=== PATIENT | female | born 1950 | race Caucasian/White ===

== ENCOUNTER → 2023-10-01 12:39 | Outpatient (REF) | payer OTHER, MEDICARE, SELFPAY ==
[2023-10-01 13:42] LABS: Free T4 1.23 ng/dl (0.78-2.19)
[2023-10-01 13:56] LABS: TSH 2.17 uIU/ml (0.47-4.68)
[2023-10-01 14:34] LABS: Glycohemoglobin (HgbA1c) 6.2 % (4.0-5.6)
== END ==
LOC: OLABN 12:39
PROVIDERS: ATTENDING PHYSICIAN Internal Medicine Geriatric Medicine
DX: R73.03 Prediabetes (principal); E03.9 Hypothyroidism, unspecified
CPT/HCPCS: 36415; 83036; 84439; 84443

== ENCOUNTER → 2024-03-31 13:28 | Outpatient (REF) | payer MEDICARE, OTHER, SELFPAY ==
[2024-03-31 16:05] LABS: ALT (SGPT) 21 U/L (0-35); AST (SGOT) 30 U/L (14-36); Albumin 3.7 g/dl (3.5-5.0); Alkaline Phosphatase 58 U/L (38-126); Blood Urea Nitrogen 22 mg/dl (7-17); Calcium 9.3 mg/dl (8.4-10.2); Carbon Dioxide 28 mmol/L (22-30); Chloride 103 mmol/L (98-107); Glucose 124 mg/dl (70-99); HDL Cholesterol 28 mg/dl; Iron 97 ug/dl (37-170); LDL Cholesterol, Calculated 104 mg/dl; Potassium 4.3 mmol/L (3.5-5.1); Sodium 138 mmol/L (135-145); Total Bilirubin 0.4 mg/dl (0.2-1.3); Total Cholesterol 177 mg/dl (50-199); Total Protein 6.4 g/dl (6.3-8.2); Triglyceride 226 mg/dl (10-149); Very Low Density Lipoprotein 45 mg/dl (0-30); eGFR > 60.00
[2024-03-31 16:22] LABS: Free T4 1.05 ng/dl (0.78-2.19); Vitamin D, 25-OH*** 42.1 ng/mL (30-80)
[2024-03-31 16:35] LABS: Hematocrit 41.6 % (37.0-47.0); Hemoglobin 13.7 g/dL (12.0-16.0); Mean Corp Hgb Conc. 32.9 g/dL (33.0-37.0); Mean Corpuscular Hgb 32.9 pg (27.0-31.0); Mean Corpuscular Volume 99.8 fL (81.0-99.0); Platelet Count 225 10^3/uL (130-400); Red Blood Cell Count 4.17 10^6/uL (4.20-5.40); Red Cell Dist. Width 14.5 % (11.5-14.5); TSH 9.69 uIU/ml (0.47-4.68); White Blood Cell Count 6.8 10^3/uL (4.8-10.8)
[2024-03-31 17:20] LABS: Depakane 91.6 ug/ml (50.0-120.0)
== END ==
LOC: OLABN 13:28
PROVIDERS: ATTENDING PHYSICIAN Internal Medicine Geriatric Medicine
DX: R11.10 Vomiting, unspecified (principal); E78.5 Hyperlipidemia, unspecified; I48.91 Unspecified atrial fibrillation; E03.9 Hypothyroidism, unspecified; E55.9 Vitamin D deficiency, unspecified
CPT/HCPCS: 36415; 80053; 80061; 80164; 82306; 83540; 84439; 84443; 85027

== ENCOUNTER → 2024-06-30 11:05 | Outpatient (REF) | payer MEDICARE, OTHER, SELFPAY ==
[2024-06-30 12:21] LABS: Blood Urea Nitrogen 27 mg/dl (7-17); Calcium 9.8 mg/dl (8.4-10.2); Carbon Dioxide 32 mmol/L (22-30); Chloride 101 mmol/L (98-107); Glucose 118 mg/dl (70-99); Potassium 4.1 mmol/L (3.5-5.1); Sodium 144 mmol/L (135-145); eGFR > 60.00
[2024-06-30 12:44] LABS: NT-proBNP 451 pg/ml
[2024-06-30 12:53] LABS: TSH 0.93 uIU/ml (0.47-4.68)
[2024-06-30 14:02] LABS: Glycohemoglobin (HgbA1c) 6.2 % (4.0-5.6)
== END ==
LOC: OLABN 11:05
PROVIDERS: ATTENDING PHYSICIAN Internal Medicine Geriatric Medicine
DX: I50.32 Chronic diastolic (congestive) heart failure (principal); E78.5 Hyperlipidemia, unspecified; E03.9 Hypothyroidism, unspecified; R73.03 Prediabetes
CPT/HCPCS: 36415; 80048; 83036; 83880; 84443

== ENCOUNTER 2024-08-21 01:27 | Inpatient (IN) | payer MEDICARE, OTHER, SELFPAY ==
[2024-08-20] MEDS: TYLENOL/FEVERALL 650 MG RECTAL (21:23)
[2024-08-20 21:27] VITALS: BP 143/71
[2024-08-20 21:31] VITALS: BP 143/71
[2024-08-20 21:41] LABS: % Basophils 0.7 % (0-2); % Immature Granulocytes 1.3 % (0-0.5); % Lymphocytes 24.1 % (20.5-51.1); % Monocytes 15.2 % (1.7-9.3); % Neutrophils 58.7 % (42.2-75.2); Absolute Immature Granulocytes 0.1 10^3/uL (0-0.05); Absolute Lymphocytes 1.5 10^3/uL (1.2-3.4); Absolute Monocytes 0.9 10^3/uL (0.1-0.6); Absolute Neutrophils 3.6 10^3/uL (1.4-6.5); Hematocrit 44.7 % (37.0-47.0); Hemoglobin 15.3 g/dL (12.0-16.0); Mean Corp Hgb Conc. 34.2 g/dL (33.0-37.0); Mean Corpuscular Hgb 33.3 pg (27.0-31.0); Mean Corpuscular Volume 97.2 fL (81.0-99.0); Mean Platelet Volume 10.9 fL (7.4-10.4); Nucleated Red Blood Cells % 0 %; Platelet Count 133 10^3/uL (130-400); Red Cell Dist. Width 14.6 % (11.5-14.5); White Blood Cell Count 6.1 10^3/uL (4.8-10.8)
[2024-08-20 21:46] LABS: Lactic Acid 1.9 mmol/L (0.7-2.0)
[2024-08-20 21:49] LABS: COVID-19 Antigen Negative (Negative)
[2024-08-20 21:54] LABS: Blood Urea Nitrogen 20 mg/dl (7-17); Carbon Dioxide 32 mmol/L (22-30); Chloride 99 mmol/L (98-107); Glucose 139 mg/dl (70-99); Sodium 140 mmol/L (135-145); eGFR > 60.00
[2024-08-20 23:00] VITALS: BP 132/70
[2024-08-21] VITALS (10 sets, daily range): BP systolic 106–145; BP diastolic 59–100
--- NOTE | 2024-08-21 00:21 | ED.GENMED ---
History of Present Illness
General
Chief Complaint: Fever
Source: other (Nursing staff in ER)
Exam Limitations: dementia (able to answer some questions)
Time Seen by Provider: 08/20/24 23:30
History of Present Illness
History of Present Illness:
This is a 74 year old female that comes in with c/o fever and cough. Told that the half-way did not treat the fever as the patient would not open her mouth. Told that she also has a cough and dehydration. Patient normall on Oxygen at 2 liters
by nasal canula. Denies any chest pain, SOB, abd pain, nausea, vomiting, diarrhea, headache, dizziness, urinary burning
Past History
Past History
ED Past Medical History: Arrthythmia (AFib), Cancer (Melanoma), GERD, HTN, Hypercholesterolemia, Seizures, Hypothyroidism, Psychiatric (depression), Other (Epilepsy, ekg monitor tech implant, Dementia, Paralysis, Parkinson's, TBI, Strabismus,
Anemia, ), Other (fractured pelvis without repair) and Other (Closed head injury 40 years ago with craniotomy, poor memory)
ED Past Surgical History: Brain (craniotomy in 1970), Cardiac (Loop recorder), Orthopedic (status post right ankle ORIF) and Other (Skull flap)
Social History
Tobacco: Non-smoker
Alcohol: None
Drug: None
Personal: Single
Living: half-way
Employment: Not employed
Family History
Family History: Other (Reviewed and Noncontributory); Negative Diabetes, Hypertension or CAD
Review of Systems
Review of Systems
All Other Systems: ROS reviewed and negative except as documented in HPI and ROS
Constitutional: Reports fever; Denies chills
EENT: Reports no symptoms
Respiratory: Reports cough
Cardiac: Reports no symptoms; Denies chest pain
ABD/GI: Reports no symptoms; Denies abdominal pain, nausea, vomiting or diarrhea
: Reports no symptoms
Musculoskeletal: Reports no symptoms
Skin: Reports no symptoms
Neurological: Reports no symptoms; Denies dizzy or headache
Psychiatric: Reports no symptoms
Phy Exam
General Physical Exam
General Presentation: no apparent distress
General age: appears stated age
General Skin: warm and dry
General Habitus: debilitated and elderly
General Mental: usual mental status
General Hydration: dry mucous membranes
ENT Exam
ENT Exam: TM's normal, pharynx normal and neck supple
Eye Exam
Eye Exam: other (Strabismus , Blind left eye)
Cardiovascular Exam
Cardiovascular Exam: no edema, normal peripheral pulses and irregularly irregular
Pulmonary Exam
Pulmonary Exam: no respiratory distress, chest non tender, no rhonchi, no wheezing, decreased breath sounds and other (Moist cough noted, Fine crackles at bases)
Gastrointestinal Exam
Gastrointestinal Exam: normal bowel sounds, non tender, soft, no organomegaly, no pulsatile mass and non distended
Musculoskeletal Exam
Musculoskeletal Exam: no edema
Skin Exam
Skin Exam: normal color, warm/dry, no rash and no petechia
Psychiatric Exam
Psychiatric Exam: normal mood/affect
Course
Orders/Labs/Results
Orders:
Orders
08/20/24 21:17
Acetaminophen [Tylenol/Feverall] 650 mg .ROUTE .STK-MED ONE
08/20/24 21:20
Electrocardiogram (*1) Urgent
Reason for Study: Other
Other Reason for Exam: Possible Sepsis
Cardiac Monitoring- Treatment ONCE
O2 Therapy [RESP] Urgent
Titrate/Wean O2 to maintain O2 sat greater than (%): 93
Special Instructions: TO MAINTAIN CONTINUOUS O2 SATS > OR = 93%
Pulse Ox/cont/shift [RESP] Urgent
Quantity: 1
Special Instructions: CONTINUOUS
08/20/24 21:21
EKG- Treatment ONCE
CR Chest - 2 Views Urgent
Comment:
Reason For Exam: suspected infection
08/20/24 21:22
Acetaminophen [Tylenol/Feverall] 650 mg RECTAL NOW STA
08/20/24 21:28
Basic Metabolic Panel Urgent
COVID-19 Antigen Urgent
Source: Nasal Swab
Complete Blood Count/With Diff Urgent
Lactic Acid Q4H
Comment: ON ICE, CANCEL 2ND ORDER IF FIRST LACTIC ACID LEVEL <2
Influenza A+B Rapid Molecular Urgent
YOSI Source: Nasal Swab
Specimen Description:
Abnormal Lab Results
08/20/24
21:28
MCH 33.3 H pg
(27.0-31.0)
RDW 14.6 H %
(11.5-14.5)
MPV 10.9 H fL
(7.4-10.4)
Abs Immat Gran (auto) 0.1 H 10^3/uL
(0-0.05)
Absolute Monos (auto) 0.9 H 10^3/uL
(0.1-0.6)
Immature Gran % 1.3 H %
(0-0.5)
Monocytes % 15.2 H %
(1.7-9.3)
Carbon Dioxide 32 H mmol/L
(22-30)
BUN 20 H mg/dl
(7-17)
Glucose 139 H mg/dl
(70-99)
08/20/24 21:28
08/20/24 21:28
Dehydration. Hyperglycemia. Lactic acid normal at 1.9, COVID and Influenza negative.
Vital Signs
Initial and Last Documented VS:
Initial Vital Signs
Temp
104.3 F H
08/20/24 21:24
Last Documented Vital Signs
Temp Pulse Resp BP Pulse Ox
101.6 F H 109 20 132/70 94
08/20/24 22:53 08/20/24 23:45 08/20/24 23:45 08/20/24 23:00 08/20/24 23:45
MDM/Problems Addressed
Differential Diagnosis Includes:
PNA, COVID, Influenza.
MDM/Problems Addressed:
This is a 74 year old female that is sent in form the half-way with a fever and cough. Patient normally wears Oxygen at 2 liters. Patient was not given anything for her fever as she would not open her mouth.
Will check labs. Chest x-ray. COVID and Influenza
Chest x-ray appears to have Pneumonia. Will start on antibiotics and given IV fluids. Hospitalist notified.
Chronic conditions affecting care:
Dementia, Chronic Oxygen use.
Acute Exacerbation and/or Progression of Chronic Illness:
NA
*Radiology
Radiology exam reviewed: preliminary read by ED provider (Chest- Lower lobe Pneumonia)
*Pulse Oximetry
Patient hypoxic: no
*EKG
Interpreted by ED Provider?: Yes
Heart Rate: 105
Rate: tachycardiac
Rhythm: a-fib
[place]: left axis deviation
QRS Pattern: normal QRS
Ischemia: no ischemia
*[employer] Interpretation
Rate: tachycardiac
Heart Rate: 104
Rhythm: a-fib
*Critical Care Note
Total Time (30-74mins, 75-104mins- exclusive of procedures): Not Applicable
ED Attending Note
-
Portions of this chart may have been created with voice recognition software.� Occasional wrong word or��sound alike� substitutions may have occurred due to the inherent limitations of voice recognition software.
Discharge Plan
Departure
Patient Disposition: Admit
Date of Disposition: 08/21/24
Time of Disposition: 00:40
Admit to: Med/Surg
Presentation/result/management discussed w/ accepting MD/DO: Hospitalist
Patient with high blood pressure during this ER visit?: Yes
Condition: Good
Covid-19: Negative COVID-19
Discharge Problem:
Lower lobe pneumonia, Fever
Prescriptions:
No Action
acetaminophen 325 MG tablet
650 mg PO Q4HPRN PRN (Reason: mild pain/ fever>100.4)
sennosides-docusate sodium 1 TABLET tablet
2 tab PO QPM
magnesium hydroxide 30 ML suspension
30 ml PO HSPRN PRN (Reason: lack of bm)
bisacodyl [OneLAX Bisacodyl] 10 MG suppository
10 mg [place] DAILYPRN PRN (Reason: if mom ineffective)
atorvastatin 10 MG tablet
10 mg PO QPM
diltiazem HCl 180 MG capsule,extended release 24hr
180 mg PO DAILY
ferrous sulfate [FeroSul] 325 MG tablet
325 mg PO MOWEFR
divalproex 125 MG capsule, delayed rel sprinkle
375 mg PO DAILY
pregabalin [Lyrica] 150 MG capsule
150 mg PO BID Qty: 20 0RF
divalproex [Depakote Sprinkles] 125 mg Capsule, Delayed Rel Sprinkle
750 mg PO HS
pantoprazole 40 mg Tablet,Delayed Release (Dr/Ec)
40 mg PO BID Qty: 0 0RF
ipratropium-albuterol 0.5 mg-3 mg(2.5 mg base)/3 mL Solution For Nebulization
3 ml INHALATION Q4H PRN (Reason: wheezing)
dextromethorphan-guaifenesin [Tussin DM] 10-100 mg/5 mL Syrup
10 ml PO Q4H PRN (Reason: cough)
levothyroxine 125 mcg Tablet
125 mcg PO DAILY
cholecalciferol (vitamin D3) 125 mcg (5,000 unit) Tablet
125 mcg PO DAILY
furosemide 40 mg Tablet
40 mg PO DAILY Qty: 0 0RF
sodium chloride [NebuSal] 3 % Solution For Nebulization
4 ml inhalation R TID Qty: 120 0RF
budesonide 0.5 mg/2 mL Suspension For Nebulization
0.5 mg inhalation R BID Qty: 0 0RF
Saline Nasal 0.65 % Aerosol,[place]
2 sprays intranasal TID Qty: 0 0RF
escitalopram oxalate 5 mg Tablet
5 mg PO DAILY Qty: 0 0RF
Eliquis 5 MG tablet
5 mg PO BID Qty: 0 0RF
Rx Instructions:
RESUME 09/26/23 IF NO FURTHER NOSE BLEED
Referrals:
UNKNOWN - PT NOT,INTERVIEWE [Family Provider] -
Interventions
Interventions:
*Risk Screen - Suicide Last Done: 08/20/24 21:31
*General Assessment Last Done: 08/20/24 21:31
*Neglect/Abuse Screening Last Done: 08/20/24 21:31
ED- Fall Risk Assessment Last Done: 08/20/24 23:53
*ED COVID-19 Vaccine History Last Done: 08/20/24 21:31
ED- Neurological Assessment Last Done: 08/20/24 21:48
ED-Skin Assessment Last Done: 08/20/24 21:48
Discharge Date and Time
Print Language: WOLOF
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
[2024-08-21] MEDS: NSS 500 IV (01:14)
[2024-08-21] MEDS: VANCOCIN 540 MG IV (01:14)
[2024-08-21 01:20] LABS: TSH Reflex To Free T4 0.09 uIU/ml (0.47-4.68)
[2024-08-21] MEDS: AZACTAM 1000 MG IV (03:53)
[2024-08-21 04:22] LABS: Urine Albumin 1+ (Neg - Trace); Urine Bilirubin Negative (Negative); Urine Character Very Cloudy (Clear); Urine Color Yellow; Urine Glucose Negative (Negative); Urine Ketone 1+ (Negative); Urine Leukocyte 2+ (Negative); Urine Nitrite Positive (Negative); Urine Occult Blood 3+ (Negative); Urine Specific Gravity 1.015 (<1.030); Urine Urobilinogen Negative (Neg - 1+)
[2024-08-21 04:56] LABS: Urine Amorphous Seen; Urine Bacteria Many (Negative); Urine Mucus Many; Urine Squamous Cell >30 /LPF (Few); Urine Urothelial Cell >30 /LPF (FEW); Urine White Cell >100 /HPF (0-5)
[2024-08-21 05:06] LABS: Free T4 1.78 ng/dl (0.78-2.19)
[2024-08-21 06:06] LABS: Hemoglobin 13.6 g/dL (12.0-16.0); Mean Corp Hgb Conc. 31.6 g/dL (33.0-37.0); Mean Corpuscular Hgb 32.2 pg (27.0-31.0); Mean Corpuscular Volume 101.9 fL (81.0-99.0); Mean Platelet Volume 10.6 fL (7.4-10.4); Platelet Count 128 10^3/uL (130-400); Red Blood Cell Count 4.22 10^6/uL (4.20-5.40); Red Cell Dist. Width 14.6 % (11.5-14.5); White Blood Cell Count 6.5 10^3/uL (4.8-10.8)
[2024-08-21 06:17] LABS: Blood Urea Nitrogen 19 mg/dl (7-17); Calcium 8.6 mg/dl (8.4-10.2); Carbon Dioxide 32 mmol/L (22-30); Chloride 103 mmol/L (98-107); Glucose 120 mg/dl (70-99); Potassium 3.9 mmol/L (3.5-5.1); Sodium 142 mmol/L (135-145); eGFR > 60.00
[2024-08-21 06:32] LABS: Procalcitonin < 0.05 ng/ml (0.0-0.25)
[2024-08-21] MEDS: TYLENOL 650 MG PO (06:46)
[2024-08-21 07:42] LABS: Glucose - Point of Care 119 mg/dl (70-99)
[2024-08-21] MEDS: NOVOLOG FLEXPEN-LOW RESISTANCE SC ×3 (09:16→17:12)
[2024-08-21] MEDS: DEPAKOTE (12 HR RELEASE) 375 MG PO (09:20)
[2024-08-21] MEDS: MUCINEX 600 MG PO ×2 (09:21→20:33)
[2024-08-21] MEDS: CARDIZEM CD 180 MG PO (09:22)
[2024-08-21] MEDS: PROTONIX 40 MG PO ×2 (09:22→20:33)
[2024-08-21] MEDS: LASIX 40 MG PO (09:22)
[2024-08-21] MEDS: VIBRAMYCIN 100 MG PO ×2 (09:23→20:34)
[2024-08-21] MEDS: PULMICORT 0.5 MG INH ×2 (09:33→19:30)
[2024-08-21] MEDS: DUONEB 3 ML INH (09:33)
--- NOTE | 2024-08-21 09:54 | W.PN.HOSP.TC ---
Today's Communication/Plan
-
Broad-spectrum antibiotics pending ID workup.
Continue supportive care.
Assessment / Plan
Assessment / Plan
Impression:
Concern for evolving sepsis (fever, tachycardia)
Pneumonia, aspiration versus nosocomial
Abnormal urinalysis
Other medical conditions:
TBI with prior history of tracheostomy, craniotomy 1971
Chronic hypoxic respiratory insufficiency on 2 L of nasal cannula oxygen at the baseline
Seizure disorder
Developmental delay
Anxiety/depression
Paroxysmal atrial fibrillation on anticoagulation
Hypothyroidism on replacement
Type 2 diabetes.
Osteoporosis with compression fracture
Hiatal hernia
Plan:
Presenting from nursing facility with fever.
On admission hemodynamically stable with normal oxygenation while on 2 L of nasal cannula oxygenation
Normal white count
Chest x-ray with bibasilar atelectasis and minimal pleural effusion
Abnormal urinalysis.
COVID-negative
Influenza negative
Differential diagnosis: With concern for evolving sepsis, could not rule out aspiration, versus UTI.
Initiated on broad-spectrum antibiotics: Ceftriaxone/doxycycline pending further workup
Follow blood cultures
Follow urine cultures
Speech and swallow consultation.
Chronic hypoxic respiratory insufficiency on 2 L of nasal cannula oxygen at the baseline.
See above
Maintain oxygen supplementation.
Continue Pulmicort
Continue nebulizers
Paroxysmal atrial fibrillation.
Continue diltiazem.
Continue apixaban
TBI
Seizure disorder continue preadmission regimen with Depakote
Chronic pain on Lyrica
Type 2 diabetes
Update hemoglobin A1c
Hold metformin acutely.
Continue basal bolus protocol.
Hypothyroidism on replacement
CODE STATUS DNR.
DVT prophylaxis apixaban
Anticipated Discharge: 24 - 48 hours
Subjective/Interval History
-
Date of Service: August 21, 2024
Objective Data
-
Labs:
Laboratory Results
08/20/24 08/21/24
21:28 05:47
WBC 6.5
Hgb 13.6
Hct 43.0
Plt Count 128 L
Sodium 140 142
Potassium 3.9
Chloride 99 103
Carbon Dioxide 32 H 32 H
BUN 20 H 19 H
Creatinine 0.7 0.7
Glucose 139 H 120 H
Calcium 9.0 8.6
Total Bilirubin Cancelled
AST Cancelled
ALT Cancelled
Alkaline Phosphatase Cancelled
Vital Signs:
Vital Signs
Temp Pulse Resp BP Pulse Ox
98.3 F 88 14 123/72 95
08/21/24 09:16 08/21/24 09:36 08/21/24 09:36 08/21/24 04:00 08/21/24 09:36
I&O
08/20/24 08/21/24 08/22/24
06:59 06:59 06:59
Intake Total 1040 / 1040
Output Total 200 / 200
Balance 840 / 840
Physical Exam
-
General: Well Developed and No Apparent Distress
HEENT: Normocephalic, Atraumatic and Moist Mucous Membranes
Respiratory: Clear to Auscultation
Cardiac: Regular Rhythm and S1/S2; Negative Murmur, Rub or Gallop
GI: Soft, Nontender, Nondistended and Normal Bowel Sounds; Negative Organomegaly
Rectal: Deferred by Provider
Musculoskeletal: No Clubbing, No Cyanosis and No Edema
Skin: Negative Rash
Neuro: Nonfocal/Grossly Intact
[2024-08-21] MEDS: FEOSOL 325 MG PO (10:26)
[2024-08-21] MEDS: LYRICA 150 MG PO ×2 (10:46→20:34)
[2024-08-21] MEDS: SYNTHROID 137 MCG PO (10:46)
[2024-08-21] MEDS: ROCEPHIN 1000 MG IV (10:53)
[2024-08-21] MEDS: STERILE WATER FOR INJECTION 10 ML IV (11:01)
[2024-08-21] MEDS: LIPITOR 10 MG PO (11:16)
[2024-08-21] MEDS: ELIQUIS 5 MG PO ×2 (11:16→20:33)
[2024-08-21 13:36] LABS: Glucose - Point of Care 120 mg/dl (70-99)
--- NOTE | 2024-08-21 13:39 | PTOTSP ---
Speech Therapy Evaluation:
Pt presents with clinical signs of oropharyngeal dysphagia, likely chronic in nature related to hx of Dementia, Parkinsons, and TBI. Pt received VSE in August of 2023, in which pt presented with mild-moderate oral phase dysphagia and functional
pharyngeal phase. It was recommended pt consume a regular/thin liquid diet and no further ST services were recommended at that time. On this date, pt presented with occasional s/sx of aspiration with thin liquids, however difficult to reliable
attribute to aspiration events given congested cough prior to PO intake. WBC WNL. Per nursing, pt passed 3 oz swallow screen.
Recommend:
1. Continue IDDSI Level 7 (regular) solids and thin liquids
2. Medications as tolerated
3. General aspiration and reflux precautions
4. Assistance/SPV with PO intake
5. CASHIER TICKET SELLING to follow re: tolerance of current diet level and to determine if VSE warranted.
--- NOTE | 2024-08-21 15:30 | PTCARENOTE ---
Received pt from ED holds. Pt drowsy but arousable to verbal stimuli. Pt oriented to person, confused. VSS 94% on 2L. Afib with PVCs on tele. Pt has no c/o pain at this time. Pt HOB elevated, call hinojosa within reach, bed alarm placed for safety, plan
of care continues.
[2024-08-21 16:56] LABS: Glucose - Point of Care 103 mg/dl (70-99)
[2024-08-21] MEDS: DEPAKOTE (12 HR RELEASE) 750 MG PO (17:42)
[2024-08-21] MEDS: SENOKOT-S 2 TABLET PO (20:33)
[2024-08-21 22:06] LABS: Glucose - Point of Care 118 mg/dl (70-99)
[2024-08-22 03:30] VITALS: BP 125/83
[2024-08-22] MEDS: SYNTHROID 137 MCG PO (04:45)
[2024-08-22 07:13] VITALS: BP 130/76
[2024-08-22] MEDS: DUONEB 3 ML INH (07:18)
[2024-08-22] MEDS: PULMICORT 0.5 MG INH (07:18)
[2024-08-22] MEDS: PROTONIX 40 MG PO ×2 (07:25→19:56)
[2024-08-22] MEDS: ELIQUIS 5 MG PO ×2 (07:25→19:56)
[2024-08-22] MEDS: MUCINEX 600 MG PO ×2 (07:25→19:57)
[2024-08-22] MEDS: CARDIZEM CD 180 MG PO (07:25)
[2024-08-22] MEDS: LIPITOR 10 MG PO (07:25)
[2024-08-22] MEDS: VIBRAMYCIN 100 MG PO (07:26)
[2024-08-22] MEDS: DEPAKOTE (12 HR RELEASE) 375 MG PO (07:26)
[2024-08-22] MEDS: LYRICA 150 MG PO ×2 (07:26→19:57)
[2024-08-22] MEDS: NOVOLOG FLEXPEN-LOW RESISTANCE SC ×3 (07:28→16:54)
[2024-08-22 07:29] LABS: Glucose - Point of Care 114 mg/dl (70-99)
[2024-08-22] MEDS: ROCEPHIN 1000 MG IV (11:06)
[2024-08-22] MEDS: STERILE WATER FOR INJECTION 10 ML IV (11:06)
[2024-08-22 11:32] VITALS: BP 128/73
[2024-08-22 12:26] LABS: Glucose - Point of Care 107 mg/dl (70-99)
[2024-08-22 15:03] VITALS: BP 129/77
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
--- NOTE | 2024-08-22 15:44 | W.PN.HOSP.TC ---
Today's Communication/Plan
-
Improved, been afebrile with improved mental status but
Urine culture with gram-negative bacilli pending final indication
Continue with ceftriaxone
Continue supportive care
Assessment / Plan
Assessment / Plan
Impression:
Sepsis present on admission (fever, tachycardia)
Urinary tract infection
Bibasilar infiltrates likely atelectasis
Other medical conditions:
TBI with prior history of tracheostomy, craniotomy 1971
Chronic hypoxic respiratory insufficiency on 2 L of nasal cannula oxygen at the baseline
Seizure disorder
Developmental delay
Anxiety/depression
Paroxysmal atrial fibrillation on anticoagulation
Hypothyroidism on replacement
Type 2 diabetes.
Osteoporosis with compression fracture
Hiatal hernia
Plan:
Sepsis secondary to UTI.
Presenting from nursing facility with fever.
On admission hemodynamically stable with normal oxygenation while on 2 L of nasal cannula oxygenation
Normal white count with left shift
Abnormal urinalysis
Urine culture preliminary with gram-negative bacilli
Chest x-ray with bibasilar atelectasis and minimal pleural effusion
Antibiotics consolidated to ceftriaxone pending final cultures
COVID-negative
Influenza negative
Speech evaluation with no evidence of aspiration.
Chronic hypoxic respiratory insufficiency on 2 L of nasal cannula oxygen at the baseline.
See above
Maintain oxygen supplementation.
Continue Pulmicort
Continue nebulizers
Paroxysmal atrial fibrillation.
Continue diltiazem.
Continue apixaban
TBI
Seizure disorder continue preadmission regimen with Depakote
Chronic pain on Lyrica
Type 2 diabetes
Update hemoglobin A1c 6.2
Hold metformin acutely.
Continue basal bolus protocol.
Hypothyroidism on replacement
CODE STATUS DNR.
DVT prophylaxis apixaban
Anticipated Discharge: 24 - 48 hours
Subjective/Interval History
-
Date of Service: August 22, 2024
Objective Data
-
Vital Signs:
Vital Signs
Temp Pulse Resp BP Pulse Ox
97.7 F 96 18 128/73 95
08/22/24 11:32 08/22/24 11:32 08/22/24 11:32 08/22/24 11:32 08/22/24 11:32
I&O
08/21/24 08/22/24 08/23/24
06:59 06:59 06:59
Intake Total 1040 / 1040
Output Total 200 / 200 175 / 175
Balance 840 / 840 -175 / -175
Physical Exam
-
General: Well Developed and No Apparent Distress
HEENT: Normocephalic, Atraumatic and Moist Mucous Membranes
Respiratory: Clear to Auscultation
Cardiac: Regular Rhythm and S1/S2; Negative Murmur, Rub or Gallop
GI: Soft, Nontender, Nondistended and Normal Bowel Sounds; Negative Organomegaly
Rectal: Deferred by Provider
Musculoskeletal: No Clubbing, No Cyanosis and No Edema
Skin: Negative Rash
Neuro: Nonfocal/Grossly Intact
[2024-08-22 16:30] LABS: Glucose - Point of Care 104 mg/dl (70-99)
[2024-08-22] MEDS: DEPAKOTE (12 HR RELEASE) 750 MG PO (17:00)
[2024-08-22] MEDS: PULMICORT INH (19:22)
[2024-08-22 19:23] VITALS: BP 144/77
[2024-08-22] MEDS: SENOKOT-S 2 TABLET PO (19:57)
[2024-08-22 21:13] LABS: Glucose - Point of Care 104 mg/dl (70-99)
[2024-08-22 23:48] VITALS: BP 136/98
[2024-08-23 03:52] VITALS: BP 110/64
[2024-08-23] MEDS: SYNTHROID 137 MCG PO (05:30)
[2024-08-23 07:30] VITALS: BP 145/72
[2024-08-23 07:32] LABS: Glucose - Point of Care 81 mg/dl (70-99)
[2024-08-23] MEDS: PULMICORT 0.5 MG INH ×2 (07:56→17:38)
[2024-08-23] MEDS: NOVOLOG FLEXPEN-LOW RESISTANCE SC ×3 (08:46→17:16)
[2024-08-23] MEDS: CARDIZEM CD 180 MG PO (08:55)
[2024-08-23] MEDS: LIPITOR 10 MG PO (08:55)
[2024-08-23] MEDS: LYRICA 150 MG PO ×2 (08:55→19:51)
[2024-08-23] MEDS: DEPAKOTE (12 HR RELEASE) 375 MG PO (08:55)
[2024-08-23] MEDS: ELIQUIS 5 MG PO ×2 (08:55→19:51)
[2024-08-23] MEDS: MUCINEX 600 MG PO ×2 (08:56→19:51)
[2024-08-23] MEDS: PROTONIX 40 MG PO ×2 (08:56→19:51)
[2024-08-23] MEDS: FEOSOL 325 MG PO (08:56)
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
[2024-08-23 11:25] VITALS: BP 135/76
[2024-08-23] MEDS: FLUSH (NSS) 2 FLUSH IV (11:26)
[2024-08-23] MEDS: STERILE WATER FOR INJECTION 10 ML IV (11:26)
[2024-08-23] MEDS: ROCEPHIN 1000 MG IV (11:26)
[2024-08-23 11:55] LABS: Glucose - Point of Care 101 mg/dl (70-99)
--- NOTE | 2024-08-23 14:23 | PTCARENOTE ---
Pt up to come off telemetry today per protocol. Pt having occasional 2 sec pauses with Afib. Last noted pause 2.19 sec at 1233. Pt asymptomatic. Discussed with Dr. Abdi. Dr. Abdi ok with pt coming off telemetry.
[2024-08-23 15:29] VITALS: BP 126/69
[2024-08-23 16:52] LABS: Glucose - Point of Care 107 mg/dl (70-99)
[2024-08-23] MEDS: DEPAKOTE (12 HR RELEASE) 750 MG PO (17:48)
[2024-08-23] MEDS: SENOKOT-S 2 TABLET PO (19:51)
[2024-08-23 21:06] LABS: Glucose - Point of Care 161 mg/dl (70-99)
[2024-08-23 23:55] VITALS: BP 116/73
[2024-08-24] MEDS: SYNTHROID 137 MCG PO (05:33)
[2024-08-24] MEDS: PULMICORT 0.5 MG INH (07:16)
[2024-08-24 07:40] VITALS: BP 156/91
[2024-08-24 08:13] LABS: Glucose - Point of Care 179 mg/dl (70-99)
[2024-08-24] MEDS: CARDIZEM CD 180 MG PO (08:45)
[2024-08-24] MEDS: MUCINEX 600 MG PO (08:45)
[2024-08-24] MEDS: DEPAKOTE (12 HR RELEASE) 375 MG PO (08:46)
[2024-08-24] MEDS: PROTONIX 40 MG PO (08:46)
[2024-08-24] MEDS: ELIQUIS 5 MG PO (08:46)
[2024-08-24] MEDS: LIPITOR 10 MG PO (08:46)
[2024-08-24] MEDS: LYRICA 150 MG PO (08:46)
[2024-08-24] MEDS: NOVOLOG FLEXPEN-LOW RESISTANCE 1 UNITS SC (08:51)
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
[2024-08-24] MEDS: FLUSH (NSS) 1 FLUSH IV (10:21)
[2024-08-24] MEDS: ROCEPHIN 1000 MG IV (10:21)
[2024-08-24] MEDS: STERILE WATER FOR INJECTION 10 ML IV (10:21)
--- NOTE | 2024-08-24 11:12 | CM ---
Patient seen at bedside. Patient for transfer back to [facility] and CM spoke with admissions at [facility] they confirmed ability to accept patient back. Please call report to [phone]/fax [phone]. CM called to patient sister and confirmed email,
[email or web address]. Patient can return to SNF. CM will complete ambulance forms and continue to follow for discharge planning needs.
Plan; return to SNF; [facility]
[2024-08-24 11:45] VITALS: BP 130/75
[2024-08-24 11:46] LABS: Glucose - Point of Care 135 mg/dl (70-99)
[2024-08-24] MEDS: NOVOLOG FLEXPEN-LOW RESISTANCE SC (11:52)
--- NOTE | 2024-08-24 12:01 | W.DCSUMMARY ---
Discharge Summary
Discharge Data
Date of Admission: 08/21/24
Date of Discharge: 08/24/24
-
Pending Results: No
Hospital Course
74 years old female [facility] for history of fever. Initial diagnosis urinary tract infection versus pneumonia. Chest radiography showed mild bibasilar infiltrate was mostly consistent with atelectasis. Patient has history
of chronic hypoxic respiratory failure on home oxygen. She did not have cough or worsening hypoxia in the hospital. Influenza screen and COVID extreme were negative. Patient received intravenous antibiotic. Urine culture was pansensitive
Escherichia coli. Patient started to improve with resolution of fever. She did not have leukocytosis. She had normal kidney function. Procalcitonin level was normal. She was able to tolerate diet. She was evaluated by speech therapy and
recommended to continue regular diet. Patient remained hemodynamically stable was [facility] back [facility] in a [facility] condition. Patient was discharged to finish course of oral antibiotic.
Discharge Plan
-
Patient Disposition: [facility]/SNF
Discharge Diagnosis/Procedures: Urinary tract infection, finish course of cefdinir for another 6 doses.
Diet: As tolerated
Referrals:
UNKNOWN - PT NOT,INTERVIEWE [Family Provider] -
Prescriptions:
New
cefdinir 300 mg capsule
300 mg PO BID Qty: 6 0RF
Continued
acetaminophen 325 MG tablet
650 mg PO Q4HPRN PRN (Reason: mild pain/ fever>100.4)
sennosides-docusate sodium 1 TABLET tablet
2 tab PO HS
magnesium hydroxide 30 ML suspension
30 ml PO HSPRN PRN (Reason: if no bm by 2nd day)
bisacodyl [OneLAX Bisacodyl] 10 MG suppository
10 mg SD DAILYPRN PRN (Reason: if mom ineffective)
ipratropium-albuterol 0.5 mg-3 mg(2.5 mg base)/3 mL Solution For Nebulization
3 ml INHALATION R Q4HPRN PRN (Reason: wheezing)
dextromethorphan-guaifenesin [Tussin DM] 10-100 mg/5 mL Syrup
10 ml PO Q4HPRN PRN (Reason: cough)
levothyroxine 125 mcg Tablet
137 mcg PO DAILY
metformin 500 mg Tablet
500 mg PO DAILY
furosemide [Lasix] 40 mg Tablet
40 mg PO DAILY
ketoconazole 2 % Shampoo
1 applic TOPICAL TUFR
atorvastatin [Lipitor] 10 mg Tablet
10 mg PO DAILY
diltiazem HCl 180 mg Capsule,Extended Release 24hr
180 mg PO DAILY
pantoprazole [Protonix] 40 mg Tablet,Delayed Release (Dr/Ec)
40 mg PO DAILY
ferrous sulfate 325 mg (65 mg iron) Tablet
325 mg PO MOWEFR@0800
budesonide 0.5 mg/2 mL Suspension For Nebulization
0.5 mg INHALATION R BID
divalproex [Depakote Sprinkles] 125 mg Capsule, Delayed Rel Sprinkle
750 mg PO HS
divalproex [Depakote Sprinkles] 125 mg Capsule, Delayed Rel Sprinkle
375 mg PO DAILY
pregabalin [Lyrica] 150 mg Capsule
150 mg PO BID
cholecalciferol (vitamin D3) [Vitamin D3] 125 mcg (5,000 unit) Tablet
125 mcg PO DAILY
Eliquis 5 mg Tablet
5 mg PO BID
Discharge Orders:
Discharge Patient (As Directed); Ordered 08/24/24
Ordered By: Dotty Abdi
Discharge Date and Time
Print Language: SLOVENIAN
[2024-08-24] MEDS: KEFLEX 500 MG PO (13:11)
== END 2024-08-24 14:06 | DRG 871 ==
LOC: 4 EAST ACU 01:27
PROVIDERS: Emergency Medicine; ADMITTING PHYSICIAN Internal Medicine; ATTENDING PHYSICIAN Internal Medicine; EMERGENCY PHYSICIAN Emergency Medicine
DX: A41.9 Sepsis, unspecified organism (principal); J18.9 Pneumonia, unspecified organism; N39.0 Urinary tract infection, site not specified; J98.11 Atelectasis; J96.11 Chronic respiratory failure with hypoxia; I50.32 Chronic diastolic (congestive) heart failure; F02.83 Dementia in other diseases classified elsewhere, unspecified severity, with mood disturbance; B96.20 Unspecified Escherichia coli [E. coli] as the cause of diseases classified elsewhere; Z79.890 Hormone replacement therapy; Z79.84 Long term (current) use of oral hypoglycemic drugs; Z79.01 Long term (current) use of anticoagulants; Z99.81 Dependence on supplemental oxygen; Z11.52 Encounter for screening for COVID-19; G40.909 Epilepsy, unspecified, not intractable, without status epilepticus; I48.91 Unspecified atrial fibrillation; K21.9 Gastro-esophageal reflux disease without esophagitis; E03.9 Hypothyroidism, unspecified; D50.9 Iron deficiency anemia, unspecified; I11.0 Hypertensive heart disease with heart failure; E86.0 Dehydration; F32.A Depression, unspecified; G20.A1 Parkinson's disease without dyskinesia, without mention of fluctuations; H50.9 Unspecified strabismus; Z87.820 Personal history of traumatic brain injury; E78.00 Pure hypercholesterolemia, unspecified; Z85.820 Personal history of malignant melanoma of skin; Z88.1 Allergy status to other antibiotic agents; Z88.0 Allergy status to penicillin; Z88.8 Allergy status to other drugs, medicaments and biological substances; E11.9 Type 2 diabetes mellitus without complications; Z66 Do not resuscitate; M80.00XG Age-related osteoporosis with current pathological fracture, unspecified site, subsequent encounter for fracture with delayed healing; K44.9 Diaphragmatic hernia without obstruction or gangrene; D64.9 Anemia, unspecified; G83.9 Paralytic syndrome, unspecified; H54.62 Unqualified visual loss, left eye, normal vision right eye
CPT/HCPCS: 71046; 80048; 81003; 81015; 82962; 83605; 84145; 84439; 84443; 85025; 85027; 87070; 87077; 87086; 87186; 87502; 87811; 92526; 92610; 93005; 94640; 99285

== ENCOUNTER 2024-08-28 14:06 | Inpatient (IN) | payer MEDICARE, OTHER, SELFPAY ==
[2024-08-28] VITALS (12 sets, daily range): BP systolic 120–146; BP diastolic 64–89; BMI 26.2; BMI 24.8
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
[2024-08-28] MEDS: TYLENOL/FEVERALL 650 MG RECTAL (10:45)
[2024-08-28 11:02] LABS: % Basophils 0.6 % (0-2); % Eosinophils 0.1 % (0-6); % Lymphocytes 19.2 % (20.5-51.1); % Monocytes 11.3 % (1.7-9.3); % Neutrophils 65.8 % (42.2-75.2); Absolute Basophils 0.1 10^3/uL (0-0.2); Absolute Immature Granulocytes 0.3 10^3/uL (0-0.05); Absolute Monocytes 1.2 10^3/uL (0.1-0.6); Absolute Neutrophils 6.9 10^3/uL (1.4-6.5); Hematocrit 46.2 % (37.0-47.0); Hemoglobin 15.4 g/dL (12.0-16.0); Mean Corp Hgb Conc. 33.3 g/dL (33.0-37.0); Mean Corpuscular Hgb 33.3 pg (27.0-31.0); Mean Corpuscular Volume 99.8 fL (81.0-99.0); Mean Platelet Volume 10.5 fL (7.4-10.4); Nucleated Red Blood Cells % 0 %; Platelet Count 243 10^3/uL (130-400); Red Blood Cell Count 4.63 10^6/uL (4.20-5.40); Red Cell Dist. Width 14.7 % (11.5-14.5); White Blood Cell Count 10.5 10^3/uL (4.8-10.8)
[2024-08-28 11:09] LABS: Lactic Acid 1.6 mmol/L (0.7-2.0)
[2024-08-28 11:10] LABS: ALT (SGPT) 31 U/L (0-35); AST (SGOT) 42 U/L (14-36); Albumin 4.4 g/dl (3.5-5.0); Alkaline Phosphatase 55 U/L (38-126); Blood Urea Nitrogen 24 mg/dl (7-17); Calcium 9.6 mg/dl (8.4-10.2); Carbon Dioxide 38 mmol/L (22-30); Chloride 97 mmol/L (98-107); Estimated Creatinine Clearance 49 ml/min; Glucose 172 mg/dl (70-99); Potassium 3.6 mmol/L (3.5-5.1); Sodium 145 mmol/L (135-145); Total Bilirubin 0.5 mg/dl (0.2-1.3); Total Protein 7.5 g/dl (6.3-8.2); eGFR > 60.00
[2024-08-28 11:20] LABS: Troponin I < 0.012 ng/ml
[2024-08-28 11:30] LABS: COVID-19 Antigen Negative (Negative)
[2024-08-28 11:49] LABS: Urine Albumin Trace (Neg - Trace); Urine Bilirubin Negative (Negative); Urine Character Clear (Clear); Urine Glucose Negative (Negative); Urine Ketone Trace (Negative); Urine Leukocyte Trace (Negative); Urine Nitrite Negative (Negative); Urine Occult Blood 2+ (Negative); Urine Specific Gravity 1.015 (<1.030); Urine Urobilinogen Negative (Neg - 1+); Urine pH 6.5 (5.0-9.0)
[2024-08-28 11:57] LABS: Urine Color Yellow
[2024-08-28 12:13] LABS: Urine Bacteria Few (Negative); Urine White Cell 0-2 /HPF (0-5)
[2024-08-28] MEDS: ZOSYN 100 IV (12:39)
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
--- NOTE | 2024-08-28 13:07 | W.PN.UPDATE ---
Update Note
Progress Note Update
This is an addendum to the H&P written by Kristel Conley on 08/28/2024. Patient seen and examined independently with COLD ROLL CATCHER.
74-year-old female past medical history of seizure disorder, TBI with prior tracheostomy/craniotomy, developmental delay, anxiety/depression, chronic hypoxemic respiratory insufficiency on 2 L, paroxysmal atrial fibrillation, HFpEF, hypothyroidism,
type 2 diabetes, osteoporosis, hiatal hernia, presenting for unresponsiveness witf of 88% 3 L with improvement with nonrebreather. Febrile with temperature of 102.
Patient was recently admitted from 08/21 to 08/24 for fever secondary to UTI/pneumonia.
Patient clinically septic with fever, tachycardia, tachypnea. Chest x-ray shows bibasilar opacification using subsegmental atelectasis/small left pleural effusion. Pneumonia in the left lower lobe cannot be excluded.
COVID and influenza negative.
Presentation consistent with sepsis secondary to acute viral bronchitis/pneumonia.
Check blood cultures. IV fluids for sepsis although cautious given heart failure history. Zosyn given recent hospitalization.
[2024-08-28] MEDS: NSS 500 IV (13:17)
--- NOTE | 2024-08-28 18:38 | PTCARENOTE ---
1829: Patient arrived to IMU via stretcher. Patient slid from stetcher to bed with assist x3. Patient oriented to self. Confused to time and place. Bed alarm on and audible. NRB at 15L with SpO2 96%. Call hinojosa within reach, bed in lowest position,
and bed wheels locked.
[2024-08-28] MEDS: NSS 1000 IV (19:30)
[2024-08-28] MEDS: ZOSYN 50 IV (19:31)
[2024-08-28] MEDS: ELIQUIS 5 MG PO (19:38)
[2024-08-28] MEDS: LIPITOR 10 MG PO (19:38)
[2024-08-28] MEDS: PROTONIX 40 MG PO (19:38)
[2024-08-28 19:59] LABS: Glucose - Point of Care 133 mg/dl (70-99)
[2024-08-28] MEDS: PULMICORT 0.5 MG INH (20:08)
[2024-08-28] MEDS: SENOKOT-S 2 TABLET PO (21:00)
[2024-08-28] MEDS: LYRICA 150 MG PO (21:00)
[2024-08-28] MEDS: DEPAKOTE SPRINKLE 750 MG PO (21:00)
[2024-08-28 22:02] LABS: Glucose - Point of Care 127 mg/dl (70-99)
--- NOTE | 2024-08-28 22:21 | PTCARENOTE ---
Rec'd pt from previous RN. Admission performed with assistance of medical record, pt answered questions to the best of her ability. Drowsy, but arousable to voice, oriented to self at this time. Pt able to take oral medications whole with water, but
did require minimal prompting. Pt unable to turn self independently, turn schedule in place to prevent skin breakdown. Pt received on NRB, this RN and covering RT transitioned pt to 5L NC. Pt tolerating at 99%. Pt denies complaints at this time.
[2024-08-29] VITALS (12 sets, daily range): BP systolic 98–129; BP diastolic 62–76; BMI 25.4
[2024-08-29] MEDS: ZOSYN 50 IV ×4 (01:26→21:30)
[2024-08-29 05:55] LABS: Blood Urea Nitrogen 25 mg/dl (7-17); Carbon Dioxide 35 mmol/L (22-30); Chloride 101 mmol/L (98-107); Estimated Creatinine Clearance 57 ml/min; Glucose 125 mg/dl (70-99); Potassium 3.6 mmol/L (3.5-5.1); Sodium 145 mmol/L (135-145); eGFR > 60.00
[2024-08-29 06:42] LABS: Hematocrit 43.1 % (37.0-47.0); Hemoglobin 13.8 g/dL (12.0-16.0); Mean Corpuscular Hgb 32.9 pg (27.0-31.0); Mean Corpuscular Volume 102.9 fL (81.0-99.0); Mean Platelet Volume 10.7 fL (7.4-10.4); Platelet Count 194 10^3/uL (130-400); Red Blood Cell Count 4.19 10^6/uL (4.20-5.40); Red Cell Dist. Width 14.6 % (11.5-14.5)
[2024-08-29] MEDS: PROTONIX 40 MG PO ×2 (08:20→21:30)
[2024-08-29] MEDS: LYRICA 150 MG PO ×2 (08:20→21:30)
[2024-08-29] MEDS: CARDIZEM CD PO (08:20)
[2024-08-29] MEDS: DEPAKOTE SPRINKLE 375 MG PO (08:21)
[2024-08-29] MEDS: VITAMIN D3 (cholecalciferol) 125 MCG PO (08:21)
[2024-08-29] MEDS: ELIQUIS 5 MG PO ×2 (08:21→21:30)
[2024-08-29 08:36] LABS: Glycohemoglobin (HgbA1c) 6.2 % (4.0-5.6)
[2024-08-29 08:38] LABS: Glucose - Point of Care 113 mg/dl (70-99)
[2024-08-29] MEDS: PULMICORT 0.5 MG INH ×2 (08:48→20:21)
--- NOTE | 2024-08-29 09:05 | PTCARENOTE ---
Patient recevied from shift manager. Patient resting comfortably in bed. AAOx1, mostly to self and is drowsy. VSS. No events noted overnight. No complaints of pain at this time. Currently on 3L N/C, will attempt to wean to baseline of 2L as
tolerated. Continuing ABX and IVF. Purewick in place. No tests scheduled at this moment. Call hinojosa in reach.
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
--- NOTE | 2024-08-29 10:42 | CM ---
CM following re: discharge planning.
Reviewed pt's chart, met with pt and spoke to pt's sister Addis over the phone.
Pt is a 74 year old female, admitted with primary dx of Sepsis/acute hypoxic respiratory failure likely from pneumonia.
Pt's sister Addis stated she has POA, pt has been a long-term care resident at [facility] since 2019, had brain injury at the age of 21. Pt's sister Addis stated she is the only family member. Per sister pt is wheelchair bound and [facility] staff provides
all necessary care. Per sister, pt will return back to [facility] for a LTC when medically stable.
PCP: Gerber Sawyer
Pharmacy: Contract pharmacy
D/C plan: return back to [facility] when medically stable.
CM will follow with discharge plan updates as hospitalization progresses
[2024-08-29 12:27] LABS: Glucose - Point of Care 103 mg/dl (70-99)
[2024-08-29] MEDS: NSS 1000 IV (12:38)
--- NOTE | 2024-08-29 13:29 | PTOTSP ---
Speech Therapy Evaluation:
Pt presents with clinical signs of oropharyngeal dysphagia, likely chronic in nature related to hx of Dementia, Parkinson's, and TBI. Pt received VSE in August of 2023, in which pt presented with mild-moderate oral phase dysphagia and functional
pharyngeal phase. On this date, pt demonstrated impaired oral phase as demonstrated by prolonged mastication/bolus formation, slow and segmented transfers of solids, and pocketing in buccal cavities L>R. No overt s/sx of aspiration observed across
PO intake. Attempted 3oz swallow screen, in which pt did not successfully complete d/t slow rate of intake with intermittent breaks between sips, however no s/sx of aspiration after consuming all 3 ounces.
Recommend:
1. Diet downgrade to IDDSI Level 5 (minced and moist solids) and thin liquids
2. Medications as tolerated (whole in water per RN report)
3. FULL supervision, PARTIAL assistance with PO intake
4. Ensure oral clearance prior to next bite
5. DRIER TAKE OFF TENDER to follow re: tolerance of current diet level, to determine if pt candidate for diet upgrades, and to determine if VSE warranted.
[2024-08-29] MEDS: LASIX 40 MG PO (16:20)
[2024-08-29 17:39] LABS: Glucose - Point of Care 88 mg/dl (70-99)
[2024-08-29] MEDS: LIPITOR 10 MG PO (18:16)
[2024-08-29] MEDS: DEPAKOTE SPRINKLE 750 MG PO (21:32)
[2024-08-29] MEDS: SENOKOT-S 2 TABLET PO (21:32)
[2024-08-29 21:49] LABS: Glucose - Point of Care 108 mg/dl (70-99)
[2024-08-30] VITALS (10 sets, daily range): BP systolic 91–127; BP diastolic 52–99; BMI 25.6
--- NOTE | 2024-08-30 02:45 | PTCARENOTE ---
Pt currently on 3L NC SPO2 97-98%. Pt continued in Afib, HR 60's. Oral care completed numerous times through out night. Pt had no complaints over night. Call hinojosa within reach. Assessment care and vitals as charted.
[2024-08-30] MEDS: ZOSYN 50 IV ×4 (03:00→22:00)
[2024-08-30 05:45] LABS: % Basophils 0.6 % (0-2); % Eosinophils 2.6 % (0-6); % Immature Granulocytes 1.5 % (0-0.5); % Lymphocytes 33.3 % (20.5-51.1); % Monocytes 10.2 % (1.7-9.3); % Neutrophils 51.8 % (42.2-75.2); Absolute Basophils 0.1 10^3/uL (0-0.2); Absolute Eosinophils 0.2 10^3/uL (0-0.7); Absolute Immature Granulocytes 0.1 10^3/uL (0-0.05); Absolute Monocytes 0.9 10^3/uL (0.1-0.6); Absolute Neutrophils 4.7 10^3/uL (1.4-6.5); Hematocrit 43.3 % (37.0-47.0); Hemoglobin 14.2 g/dL (12.0-16.0); Mean Corp Hgb Conc. 32.8 g/dL (33.0-37.0); Mean Corpuscular Hgb 32.8 pg (27.0-31.0); Mean Platelet Volume 10.7 fL (7.4-10.4); Nucleated Red Blood Cells % 0 %; Platelet Count 206 10^3/uL (130-400); Red Blood Cell Count 4.33 10^6/uL (4.20-5.40); Red Cell Dist. Width 13.8 % (11.5-14.5); White Blood Cell Count 9.1 10^3/uL (4.8-10.8)
[2024-08-30 05:58] LABS: Blood Urea Nitrogen 21 mg/dl (7-17); Carbon Dioxide 36 mmol/L (22-30); Chloride 97 mmol/L (98-107); Estimated Creatinine Clearance 76 ml/min; Glucose 89 mg/dl (70-99); Potassium 3.7 mmol/L (3.5-5.1); Sodium 144 mmol/L (135-145); eGFR > 60.00
[2024-08-30] MEDS: PULMICORT 0.5 MG INH ×2 (07:39→19:43)
[2024-08-30 08:46] LABS: Glucose - Point of Care 95 mg/dl (70-99)
[2024-08-30] MEDS: CARDIZEM CD 180 MG PO (08:53)
[2024-08-30] MEDS: DEPAKOTE SPRINKLE 375 MG PO (08:53)
[2024-08-30] MEDS: PROTONIX 40 MG PO ×2 (08:54→22:00)
[2024-08-30] MEDS: LYRICA 150 MG PO ×2 (08:54→21:59)
[2024-08-30] MEDS: FEOSOL 325 MG PO (08:54)
[2024-08-30] MEDS: VITAMIN D3 (cholecalciferol) 125 MCG PO (08:54)
[2024-08-30] MEDS: ELIQUIS 5 MG PO ×2 (08:54→22:00)
[2024-08-30] MEDS: LASIX 40 MG PO (08:54)
--- NOTE | 2024-08-30 09:21 | PTCARENOTE ---
Patient recevied from shift lab technician. Patient resting comfortably in bed. AAOx1-2, mostly to self and place. VSS. No events noted overnight. No complaints of pain at this time. Remained on 3L N/C overnight and will attempt to wean to baseline of
2L as tolerated. Continuing ABX and IVF. Purewick in place. No tests scheduled at this moment. Call hinojosa in reach.
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
[2024-08-30 14:07] LABS: Glucose - Point of Care 95 mg/dl (70-99)
--- NOTE | 2024-08-30 16:45 | PTCARENOTE ---
Report called to Pearl Cevallos RN. Patient transported via new room bed with all known belongings. Receiving RN in room to greet patient.
[2024-08-30 17:24] LABS: Glucose - Point of Care 88 mg/dl (70-99)
[2024-08-30] MEDS: LIPITOR 10 MG PO (18:41)
[2024-08-30] MEDS: SENOKOT-S 2 TABLET PO (22:00)
[2024-08-30] MEDS: DEPAKOTE SPRINKLE 750 MG PO (22:01)
[2024-08-30 22:44] LABS: Glucose - Point of Care 88 mg/dl (70-99)
[2024-08-31] VITALS (7 sets, daily range): BP systolic 103–135; BP diastolic 55–74; BMI 25.6
[2024-08-31] MEDS: ZOSYN 50 IV ×4 (04:21→20:34)
[2024-08-31 06:43] LABS: Glucose - Point of Care 90 mg/dl (70-99)
[2024-08-31] MEDS: PULMICORT 0.5 MG INH ×2 (07:31→19:36)
--- NOTE | 2024-08-31 07:35 | W.PN.HOSP.TC ---
Today's Communication/Plan
-
Continue IV antibiotics.
Assessment / Plan
Assessment / Plan
Physical exam:
General: Acutely ill
HEENT: Normocephalic, Atraumatic and Moist Mucous Membranes
Respiratory: Some rhonchi in the bases; Negative Wheezes, Rales
Cardiac: Regular Rhythm and S1/S2
GI: Soft, Nontender and Nondistended
Musculoskeletal: No Clubbing, No Cyanosis and No Edema
Neuro: Awake, Alert and Oriented
Psych: Calm
A/P:
Sepsis due to aspiration pneumonia:
Improving
On IV Zosyn
Appreciate speech therapy eval--> recommended minced and moist diet
At risk of recurrent events from aspiration
Blood cultures no growth
Recently hospitalized for UTI
PT eval
Updated sister prior
Hypokalemia:
Replete and trend
Acute hypoxic respiratory failure due to pneumonia:
Initially on nonrebreather mask but now on supplemental oxygen
Titrate oxygen
Flu and COVID-19 negative
Strep and Legionella negative
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
Continue monitor mental status and behavior
Chronic diastolic CHF:
Continue oral furosemide 40 mg p.o. daily
Paroxysmal atrial fibrillation:
Continue diltiazem 180 mg p.o. daily
Continue apixaban 5 mg p.o. twice a day
Seizure disorder:
Continue Depakote 375 mg p.o. daily and 750 mg p.o. in the evening
Hyperlipidemia:
Continue statin
DVT prophylaxis:
Eliquis
CODE STATUS:
DNR
Anticipated Discharge: Within 24 hours
Subjective/Interval History
-
Date of Service: August 31, 2024
Feels better overall. On oxygen supplementation. Afebrile
Objective Data
-
Labs:
Laboratory Results
08/31/24
06:00
WBC Pending
Hgb Pending
Hct Pending
Plt Count Pending
Sodium Pending
Potassium Pending
Chloride Pending
Carbon Dioxide Pending
BUN Pending
Creatinine Pending
Glucose Pending
Calcium Pending
Vital Signs:
Vital Signs
Temp Pulse Resp BP Pulse Ox
97.4 F 74 16 103/62 94
08/31/24 03:00 08/31/24 03:00 08/31/24 03:00 08/31/24 03:00 08/31/24 03:00
I&O
08/30/24 08/31/24 09/01/24
06:59 06:59 06:59
Intake Total 700 / 700 220 / 220
Output Total 800 / 800 600 / 600
Balance -100 / -100 -380 / -380
[2024-08-31 08:44] LABS: % Basophils 0.7 % (0-2); % Eosinophils 2.5 % (0-6); % Immature Granulocytes 1.1 % (0-0.5); % Lymphocytes 39.1 % (20.5-51.1); % Monocytes 13.4 % (1.7-9.3); % Neutrophils 43.2 % (42.2-75.2); Absolute Basophils 0.1 10^3/uL (0-0.2); Absolute Eosinophils 0.2 10^3/uL (0-0.7); Absolute Immature Granulocytes 0.1 10^3/uL (0-0.05); Absolute Lymphocytes 2.8 10^3/uL (1.2-3.4); Absolute Neutrophils 3.1 10^3/uL (1.4-6.5); Hematocrit 39.4 % (37.0-47.0); Hemoglobin 13.8 g/dL (12.0-16.0); Mean Corpuscular Hgb 33.5 pg (27.0-31.0); Mean Corpuscular Volume 95.6 fL (81.0-99.0); Mean Platelet Volume 10.8 fL (7.4-10.4); Nucleated Red Blood Cells % 0 %; Platelet Count 190 10^3/uL (130-400); Red Blood Cell Count 4.12 10^6/uL (4.20-5.40); Red Cell Dist. Width 13.5 % (11.5-14.5); White Blood Cell Count 7.2 10^3/uL (4.8-10.8)
[2024-08-31 08:53] LABS: Blood Urea Nitrogen 16 mg/dl (7-17); Calcium 9.1 mg/dl (8.4-10.2); Carbon Dioxide 34 mmol/L (22-30); Chloride 95 mmol/L (98-107); Estimated Creatinine Clearance 76 ml/min; Glucose 86 mg/dl (70-99); Sodium 140 mmol/L (135-145); eGFR > 60.00
[2024-08-31] MEDS: DEPAKOTE SPRINKLE 375 MG PO (10:38)
[2024-08-31] MEDS: CARDIZEM CD 180 MG PO (10:38)
[2024-08-31] MEDS: ELIQUIS 5 MG PO ×2 (10:38→20:38)
[2024-08-31] MEDS: LASIX 40 MG PO (10:38)
[2024-08-31] MEDS: LYRICA 150 MG PO ×2 (10:38→20:38)
[2024-08-31] MEDS: DESENEX/MITRAZOL/ZEASORB 1 APPLIC TOPICAL ×2 (10:39→20:47)
[2024-08-31] MEDS: PROTONIX 40 MG PO ×2 (10:39→20:38)
[2024-08-31] MEDS: VITAMIN D3 (cholecalciferol) 125 MCG PO (10:39)
[2024-08-31] MEDS: FLUSH (NSS) 1 FLUSH IV (10:39)
--- NOTE | 2024-08-31 11:43 | CM ---
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
[facility]
Report [phone]
[2024-08-31 12:01] LABS: Glucose - Point of Care 118 mg/dl (70-99)
[2024-08-31] MEDS: KCL 40 MEQ PO ×2 (13:51→18:31)
[2024-08-31 16:25] LABS: Glucose - Point of Care 126 mg/dl (70-99)
[2024-08-31] MEDS: LIPITOR 10 MG PO (18:31)
[2024-08-31 21:40] LABS: Glucose - Point of Care 119 mg/dl (70-99)
[2024-08-31] MEDS: DEPAKOTE SPRINKLE 750 MG PO (22:06)
[2024-08-31] MEDS: SENOKOT-S PO (22:07)
[2024-09-01] MEDS: ZOSYN 50 IV ×4 (03:06→20:08)
[2024-09-01 03:34] VITALS: BP 131/72
[2024-09-01 06:00] VITALS: BMI 25.8
[2024-09-01] MEDS: PULMICORT 0.5 MG INH ×2 (07:06→20:11)
[2024-09-01 07:22] LABS: Glucose - Point of Care 104 mg/dl (70-99)
[2024-09-01 07:25] VITALS: BP 141/78
[2024-09-01] MEDS: PROTONIX 40 MG PO (09:13)
[2024-09-01] MEDS: CARDIZEM CD 180 MG PO (09:14)
[2024-09-01] MEDS: LASIX 40 MG PO (09:14)
[2024-09-01] MEDS: DEPAKOTE SPRINKLE 375 MG PO (09:14)
[2024-09-01] MEDS: ELIQUIS 5 MG PO (09:14)
[2024-09-01] MEDS: VITAMIN D3 (cholecalciferol) 125 MCG PO (09:14)
[2024-09-01] MEDS: LYRICA 150 MG PO (09:15)
[2024-09-01] MEDS: FEOSOL 325 MG PO (09:15)
[2024-09-01] MEDS: DESENEX/MITRAZOL/ZEASORB 1 APPLIC TOPICAL ×2 (09:17→20:09)
--- NOTE | 2024-09-01 10:18 | W.PN.HOSP.TC ---
Today's Communication/Plan
-
Continue IV antibiotics. NPO. IV fluid
Assessment / Plan
Assessment / Plan
Physical exam:
General: Acutely ill
HEENT: Normocephalic, Atraumatic and Moist Mucous Membranes
Respiratory: Some rhonchi in the bases; Negative Wheezes, Rales
Cardiac: Regular Rhythm and S1/S2
GI: Soft, Nontender and Nondistended
Musculoskeletal: No Clubbing, No Cyanosis and No Edema
Neuro: Awake, Alert and Oriented
Psych: Calm
A/P:
Sepsis due to aspiration pneumonia:
I was about to discharge her today and change everything to oral but patient today her swallowing has stepped back. Start IV fluids and restart IV antibiotics as below.
On IV Zosyn
Appreciate speech therapy eval--> recommended n.p.o. for now
At risk of recurrent events from aspiration
Blood cultures no growth
Recently hospitalized for UTI
PT eval
Updated sister prior
Hypokalemia:
Replete and trend
Acute hypoxic respiratory failure due to pneumonia:
Initially on nonrebreather mask but now on supplemental oxygen
Titrate oxygen
Flu and COVID-19 negative
Strep and Legionella negative
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
Continue monitor mental status and behavior
Chronic diastolic CHF:
Continue oral furosemide 40 mg p.o. daily
Paroxysmal atrial fibrillation:
Continue diltiazem 180 mg p.o. daily
Continue apixaban 5 mg p.o. twice a day
Seizure disorder:
Continue Depakote 375 mg p.o. daily and 750 mg p.o. in the evening
Hyperlipidemia:
Continue statin
DVT prophylaxis:
Eliquis
CODE STATUS:
DNR
Time spent 55 minutes
Anticipated Discharge: 24 - 48 hours
Subjective/Interval History
-
Date of Service: September 01, 2024
Patient not eating and not swallowing today. Afebrile.
Objective Data
-
Labs:
Laboratory Results
09/01/24
09:07
Sodium Pending
Potassium Pending
Chloride Pending
Carbon Dioxide Pending
BUN Pending
Creatinine Pending
Glucose Pending
Calcium Pending
Vital Signs:
Vital Signs
Temp Pulse Resp BP Pulse Ox
98 F 71 20 141/78 97
09/01/24 07:25 09/01/24 09:14 09/01/24 07:25 09/01/24 09:14 09/01/24 09:08
I&O
08/31/24 09/01/24 09/02/24
06:59 06:59 06:59
Intake Total 220 / 220 220 / 220 120 / 120
Output Total 600 / 600
Balance -380 / -380 220 / 220 120 / 120
[2024-09-01 11:26] LABS: Blood Urea Nitrogen 16 mg/dl (7-17); Calcium 9.4 mg/dl (8.4-10.2); Carbon Dioxide 32 mmol/L (22-30); Chloride 96 mmol/L (98-107); Estimated Creatinine Clearance 65 ml/min; Glucose 105 mg/dl (70-99); Potassium 3.3 mmol/L (3.5-5.1); Sodium 140 mmol/L (135-145); eGFR > 60.00
[2024-09-01 11:38] VITALS: BP 147/83
[2024-09-01 11:41] LABS: Glucose - Point of Care 112 mg/dl (70-99)
[2024-09-01 12:14] LABS: Glucose - Point of Care 99 mg/dl (70-99)
--- NOTE | 2024-09-01 12:26 | CM ---
Addendum entered by SHAHANA Lemons 09/01/24 13:08:
Spouse and José Luis in admissions at [facility] updated.
Addendum entered by SHAHANA Lemons 09/01/24 13:04:
Attending stated that patient is not medically cleared for discharge. Will update spouse.
Addendum entered by SHAHANA Lemons 09/01/24 12:44:
Spoke with attending who confirmed that patient is cleared for d/c today. Placed a call to patient's sister. Reviewed IMM verbally and she is agreeable to d/c. Signed IMM is now on chart.
Medical necessity and transfer sheet completed for [facility] community relations rep.
Original Note:
Per attending note from yesterday, patient may be medically cleared for d/c today. Placed a call to [facility] Debbie and left voice mail for José Luis in admissions. Requested return call to confirm bed availability. Patient does not need auth for
transfer. Will complete medical necessity/transfer sheet in anticipation that patient will transfer back today.
Plan: Case management will continue to follow and assist with discharge planning. Back to [facility] upon medical clearance.
[2024-09-01] MEDS: NSS 1000 IV (13:06)
--- NOTE | 2024-09-01 13:10 | PTOTSP ---
SPEECH THERAPY SWALLOW FOLLOW UP NOTE:
Patient exhibits clinical signs of oropharyngeal dysphagia, likely chronic related to history of TBI, dementia, Parkinson's. Patient is at HIGH RISK for aspiration and related complications given lethargy, fluctuating levels of alertness, and
confusion. At this time, exhibiting signs of aspiration with thin liquids, requiring oral suctioning with purees. Recommend temporary STRICT NPO at this time. Should pt levels of alertness improve, could consider initiating oral medications crushed
in puree, however if remains lethargic, would hold on oral medications at this time. ST to follow, re-assess in 24 hours. Discussed with RN and Dr. Dang.
RECOMMEND:
1) temporary strict NPO
2) consider initiating oral medications crushed in puree if level of alertness improves; Otherwise, non-oral medications indicated
3) ST to follow, re-assess in 24 hours
[2024-09-01] MEDS: FLUSH (NSS) 1 FLUSH IV ×3 (13:16→17:19)
[2024-09-01] MEDS: KCL 270 MEQ IV (14:00)
--- NOTE | 2024-09-01 15:56 | PTCARENOTE ---
Pt drowsy but arousable, alert; oriented to self/birthdate when awake. Forgetful. Stays awake for short periods. JETER weakly. VSS. Telemetry:A fib with occ PVC's. Maintained on nc 2 lpm- pulse ox 98%, no SOB noted. Abd soft, rounded, stiil
refusing PO; strict NPO maintained. Incont large amts urine. IVF's NSS @ 85 ml/hr infusing via Rt wrist site without sx of infiltration. Will continue to monitor.
[2024-09-01 15:57] VITALS: BP 112/68
[2024-09-01 16:47] LABS: Glucose - Point of Care 100 mg/dl (70-99)
[2024-09-01] MEDS: LOVENOX 40 MG SC (17:12)
[2024-09-01] MEDS: D5/0.45%NSS with KCL 20 MEQ 1000 IV (17:12)
[2024-09-01] MEDS: PROTONIX IV 40 MG IV (17:19)
[2024-09-01] MEDS: NSS (PRESERVATIVE FREE) 10 ML IV (17:19)
[2024-09-01 19:50] VITALS: BP 116/63
[2024-09-01] MEDS: DEPACON 57.5 MG IV (20:51)
[2024-09-01 23:30] VITALS: BP 125/64
[2024-09-01 23:43] LABS: Glucose - Point of Care 113 mg/dl (70-99)
[2024-09-02] MEDS: ZOSYN 50 IV ×4 (03:32→20:08)
[2024-09-02 03:55] VITALS: BP 106/66
[2024-09-02] MEDS: D5/0.45%NSS with KCL 20 MEQ 1000 IV ×2 (05:56→20:08)
[2024-09-02 06:00] VITALS: BMI 25.4
[2024-09-02 06:04] LABS: Glucose - Point of Care 115 mg/dl (70-99)
[2024-09-02 07:55] VITALS: BP 135/78
[2024-09-02] MEDS: NSS (PRESERVATIVE FREE) 10 ML IV (08:42)
[2024-09-02] MEDS: PROTONIX IV 40 MG IV (08:42)
[2024-09-02] MEDS: DESENEX/MITRAZOL/ZEASORB 1 APPLIC TOPICAL ×2 (08:43→20:08)
[2024-09-02] MEDS: PULMICORT 0.5 MG INH ×2 (09:12→20:03)
--- NOTE | 2024-09-02 09:48 | W.PN.HOSP.TC ---
Today's Communication/Plan
-
IV potassium and magnesium. Cardiac monitoring. IV Depakote. IV antibiotics.
Assessment / Plan
Assessment / Plan
Physical exam:
General: Acutely ill
HEENT: Normocephalic, Atraumatic and Moist Mucous Membranes
Respiratory: Some rhonchi in the bases; Negative Wheezes, Rales
Cardiac: Regular Rhythm and S1/S2
GI: Soft, Nontender and Nondistended
Musculoskeletal: No Clubbing, No Cyanosis and No Edema
Neuro: Awake, Alert and Oriented
Psych: Calm
A/P:
Sepsis due to aspiration pneumonia:
I was about to discharge her yesterday and changed everything to oral but patient today her swallowing has stepped back. Started IV fluids and restart IV antibiotics as below.
On IV Zosyn
Appreciate speech therapy eval--> recommended n.p.o. for now--> speech to reevaluate today
At risk of recurrent events from aspiration
Blood cultures no growth
Recently hospitalized for UTI
PT eval
Updated sister prior
NSVT:
Continue cardiac monitoring
Labs came late and they are in the low side of normal so we will replete to keep K above 4 and mag above 2
Hypokalemia:
Replete and trend
Acute hypoxic respiratory failure due to pneumonia:
Initially on nonrebreather mask but now on supplemental oxygen
Titrate oxygen
Flu and COVID-19 negative
Strep and Legionella negative
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
Continue monitor mental status and behavior
Chronic diastolic CHF:
Continue oral furosemide 40 mg p.o. daily
Paroxysmal atrial fibrillation:
Continue diltiazem 180 mg p.o. daily
Continue apixaban 5 mg p.o. twice a day
Seizure disorder:
Continue Depakote 375 mg p.o. daily and 750 mg p.o. in the evening--> switch to IV evening dose and give one-time dose today for the day and will reevaluate tomorrow if home dose morning and evening if she remains NPO.
Hyperlipidemia:
Continue statin
DVT prophylaxis:
Eliquis
CODE STATUS:
DNR
Time spent 55 minutes
Anticipated Discharge: 24 - 48 hours
Subjective/Interval History
-
Date of Service: September 02, 2024
Patient had some NSVT. Denies chest pain or shortness of breath. Feels overall better today.
Objective Data
-
Labs:
Laboratory Results
09/02/24
06:00
WBC Pending
Hgb Pending
Hct Pending
Plt Count Pending
Sodium Pending
Potassium Pending
Chloride Pending
Carbon Dioxide Pending
BUN Pending
Creatinine Pending
Glucose Pending
Calcium Pending
Vital Signs:
Vital Signs
Temp Pulse Resp BP Pulse Ox
97.4 F 60 16 135/78 95
09/02/24 07:55 09/02/24 09:13 09/02/24 09:13 09/02/24 07:55 09/02/24 09:13
I&O
09/01/24 09/02/24 09/03/24
06:59 06:59 06:59
Intake Total 220 / 220 750 / 750
Balance 220 / 220 750 / 750
--- NOTE | 2024-09-02 10:31 | PTCARENOTE ---
Pt. noted to have 9 beats of Vtach at 1025 while resting in bed. Pt. asymptomatic. Dr. Dang made aware.
[2024-09-02 11:55] VITALS: BP 124/74
[2024-09-02 11:57] LABS: % Basophils 0.8 % (0-2); % Eosinophils 3.3 % (0-6); % Immature Granulocytes 1.6 % (0-0.5); % Lymphocytes 25.5 % (20.5-51.1); % Monocytes 11.2 % (1.7-9.3); % Neutrophils 57.6 % (42.2-75.2); Absolute Basophils 0.1 10^3/uL (0-0.2); Absolute Eosinophils 0.2 10^3/uL (0-0.7); Absolute Immature Granulocytes 0.1 10^3/uL (0-0.05); Absolute Lymphocytes 1.6 10^3/uL (1.2-3.4); Absolute Monocytes 0.7 10^3/uL (0.1-0.6); Absolute Neutrophils 3.7 10^3/uL (1.4-6.5); Hematocrit 39.9 % (37.0-47.0); Hemoglobin 13.1 g/dL (12.0-16.0); Mean Corp Hgb Conc. 32.8 g/dL (33.0-37.0); Mean Corpuscular Hgb 32.4 pg (27.0-31.0); Mean Corpuscular Volume 98.8 fL (81.0-99.0); Mean Platelet Volume 10.9 fL (7.4-10.4); Nucleated Red Blood Cells % 0 %; Platelet Count 171 10^3/uL (130-400); Red Blood Cell Count 4.04 10^6/uL (4.20-5.40); White Blood Cell Count 6.4 10^3/uL (4.8-10.8)
[2024-09-02 12:05] LABS: Glucose - Point of Care 112 mg/dl (70-99)
[2024-09-02 12:30] LABS: Blood Urea Nitrogen 12 mg/dl (7-17); Calcium 9.2 mg/dl (8.4-10.2); Carbon Dioxide 32 mmol/L (22-30); Chloride 98 mmol/L (98-107); Estimated Creatinine Clearance 76 ml/min; Glucose 127 mg/dl (70-99); Magnesium 1.7 mg/dl (1.6-2.3); Potassium 3.7 mmol/L (3.5-5.1); Sodium 140 mmol/L (135-145); eGFR > 60.00
[2024-09-02 15:30] VITALS: BP 128/74
[2024-09-02] MEDS: DEPACON 53.75 MG IV (15:54)
[2024-09-02] MEDS: MAGNESIUM SULFATE 50 IV (16:50)
[2024-09-02] MEDS: LOVENOX 40 MG SC (16:53)
[2024-09-02 17:00] LABS: Glucose - Point of Care 95 mg/dl (70-99)
[2024-09-02] MEDS: KCL 260 MEQ IV (18:40)
[2024-09-02 19:40] VITALS: BP 153/97
[2024-09-02] MEDS: DEPACON 57.5 MG IV (21:22)
[2024-09-02 23:55] VITALS: BP 120/74
[2024-09-03 00:22] LABS: Glucose - Point of Care 103 mg/dl (70-99)
[2024-09-03 03:40] VITALS: BP 138/83
[2024-09-03] MEDS: ZOSYN 50 IV ×4 (04:23→20:54)
[2024-09-03 06:00] VITALS: BMI 25.4
[2024-09-03 06:34] LABS: Glucose - Point of Care 88 mg/dl (70-99)
[2024-09-03 07:45] LABS: Glucose - Point of Care 107 mg/dl (70-99)
[2024-09-03 07:55] VITALS: BP 139/83
[2024-09-03 08:13] LABS: % Eosinophils 3.5 % (0-6); % Immature Granulocytes 2.7 % (0-0.5); % Lymphocytes 33.2 % (20.5-51.1); % Monocytes 13.9 % (1.7-9.3); % Neutrophils 45.7 % (42.2-75.2); Absolute Basophils 0.1 10^3/uL (0-0.2); Absolute Eosinophils 0.2 10^3/uL (0-0.7); Absolute Immature Granulocytes 0.2 10^3/uL (0-0.05); Absolute Monocytes 0.8 10^3/uL (0.1-0.6); Absolute Neutrophils 2.7 10^3/uL (1.4-6.5); Hematocrit 37.4 % (37.0-47.0); Hemoglobin 12.4 g/dL (12.0-16.0); Mean Corp Hgb Conc. 33.2 g/dL (33.0-37.0); Mean Corpuscular Hgb 32.8 pg (27.0-31.0); Mean Corpuscular Volume 98.9 fL (81.0-99.0); Mean Platelet Volume 11.1 fL (7.4-10.4); Nucleated Red Blood Cells % 0 %; Platelet Count 155 10^3/uL (130-400); Red Blood Cell Count 3.78 10^6/uL (4.20-5.40); Red Cell Dist. Width 14.1 % (11.5-14.5)
--- NOTE | 2024-09-03 08:28 | W.PN.HOSP.TC ---
Today's Communication/Plan
-
IV antibiotics. Restart diet today and reevaluate.
Assessment / Plan
Assessment / Plan
Physical exam:
General: Acutely ill
HEENT: Normocephalic, Atraumatic and Moist Mucous Membranes
Respiratory: Some rhonchi in the bases; Negative Wheezes, Rales
Cardiac: Regular Rhythm and S1/S2
GI: Soft, Nontender and Nondistended
Musculoskeletal: No Clubbing, No Cyanosis and No Edema
Neuro: Awake, Alert and Oriented
Psych: Calm
A/P:
Sepsis due to aspiration pneumonia:
Restarted IV antibiotics as below.
On IV Zosyn
Appreciate speech therapy eval--> she had to be changed to n.p.o. day before yesterday and change all medications to IV and IV fluids. Today speech therapy recommended to start diet and will switch medications to oral tomorrow if she does well over
the next 24 hours. If not, then will consider VSE tomorrow-discussed with speech therapy today.
At risk of recurrent events from aspiration
Blood cultures no growth
Recently hospitalized for UTI
PT eval
Updated sister prior
NSVT:
No recurrence today
Continue cardiac monitoring
Replete K
Mag above 2
Hypokalemia:
Replete and trend
Acute hypoxic respiratory failure due to pneumonia:
Initially on nonrebreather mask but now on supplemental oxygen
Titrate oxygen
Flu and COVID-19 negative
Strep and Legionella negative
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
Continue monitor mental status and behavior
Chronic diastolic CHF:
Continue oral furosemide 40 mg p.o. daily
Paroxysmal atrial fibrillation:
Continue diltiazem 180 mg p.o. daily
Continue apixaban 5 mg p.o. twice a day
Seizure disorder:
Continue Depakote 375 mg p.o. daily and 750 mg p.o. in the evening--> switched to IV for now.
Hyperlipidemia:
Continue statin
DVT prophylaxis:
Eliquis
CODE STATUS:
DNR
Anticipated Discharge: 24 - 48 hours
Subjective/Interval History
-
Date of Service: September 03, 2024
Patient lethargy on and off although slightly better today. Afebrile
Objective Data
-
Labs:
Laboratory Results
09/03/24
07:38
WBC 6.0
Hgb 12.4
Hct 37.4
Plt Count 155
Sodium Pending
Potassium Pending
Chloride Pending
Carbon Dioxide Pending
BUN Pending
Creatinine Pending
Glucose Pending
Calcium Pending
Vital Signs:
Vital Signs
Temp Pulse Resp BP Pulse Ox
97.7 F 82 18 138/83 99
09/03/24 03:40 09/03/24 03:40 09/03/24 03:40 09/03/24 03:40 09/03/24 03:40
I&O
09/02/24 09/03/24 09/04/24
06:59 06:59 06:59
Intake Total 750 / 750 1360 / 1360
Balance 750 / 750 1360 / 1360
[2024-09-03] MEDS: PULMICORT 0.5 MG INH ×2 (09:02→20:20)
[2024-09-03] MEDS: DESENEX/MITRAZOL/ZEASORB 1 APPLIC TOPICAL ×2 (09:15→20:54)
[2024-09-03] MEDS: NSS (PRESERVATIVE FREE) 10 ML IV (09:19)
[2024-09-03] MEDS: D5/0.45%NSS with KCL 20 MEQ 1000 IV (09:19)
[2024-09-03] MEDS: PROTONIX IV 40 MG IV (09:19)
--- NOTE | 2024-09-03 10:07 | PTOTSP ---
Speech Pathology:
Dysphagia Follow-Up
74F with admission for sepsis 2/2 suspected aspiration PNA exhibits s/s of chronic oropharyngeal dysphagia. Aspiration risk is increased 2/2 lethargy, AMS, and multiple comorbidities (hx of TBI, dementia, Parkinson�s). No overt s/s of aspiration or
penetration displayed with PO trials this date; however, prolonged bolus holding with oral residue was observed. Recommend trial diet of puree (IDDSI 4) and thin liquids (IDDSI 0) with FULL supervision and partial feeding assistance. Monitor for
bolus holding and oral residue. IF SIGNFICANT CHANGES IN MENTAL STATUS, make NPO and await [employer] re-evaluation. Recommendations discussed with RN and Dr. Dang.
Recommend:
1. Trial puree (IDDSI 0), thin liquid (IDDSI 0) via straw or cup sips
2. Meds crushed in puree followed by thin liquid wash
3. FULL Supervision and PARTIAL assistance
4. ENSURE CLEARANCE OF ORAL CAVITY PRIOR TO NEXT BITE OR SIP
5. MONITOR FOR BOLUS HOLDING AND ORAL RESIDUE
6. IF SIGNFICANT CHANGES IN MENTAL STATUS, make NPO and await [employer] re-evaluation.
7. [employer] to follow up re: to assess tolerance of diet level and upgrade as able
[2024-09-03] MEDS: DEPACON 53.75 MG IV (10:35)
[2024-09-03] MEDS: FLUSH (NSS) 2 FLUSH IV ×3 (10:36→16:52)
[2024-09-03 10:42] LABS: Blood Urea Nitrogen 7 mg/dl (7-17); Calcium 9.1 mg/dl (8.4-10.2); Carbon Dioxide 31 mmol/L (22-30); Chloride 100 mmol/L (98-107); Estimated Creatinine Clearance 76 ml/min; Glucose 116 mg/dl (70-99); Magnesium 2.3 mg/dl (1.6-2.3); Potassium 3.8 mmol/L (3.5-5.1); Sodium 140 mmol/L (135-145); eGFR > 60.00
[2024-09-03 11:30] VITALS: BP 133/73
[2024-09-03 12:38] LABS: Glucose - Point of Care 99 mg/dl (70-99)
[2024-09-03 15:30] VITALS: BP 139/89
[2024-09-03] MEDS: LASIX 20 MG IV (16:52)
[2024-09-03] MEDS: KCL 160 MEQ IV (16:52)
[2024-09-03 17:32] LABS: Glucose - Point of Care 89 mg/dl (70-99)
[2024-09-03] MEDS: LOVENOX 40 MG SC (17:43)
[2024-09-03 19:43] VITALS: BP 142/86
[2024-09-03 21:59] LABS: Glucose - Point of Care 90 mg/dl (70-99)
[2024-09-03] MEDS: DEPACON 57.5 MG IV (22:20)
[2024-09-03 23:50] VITALS: BP 146/90
[2024-09-04] VITALS (7 sets, daily range): BP systolic 141–161; BP diastolic 78–88; BMI 25.3
[2024-09-04] MEDS: ZOSYN 50 IV ×4 (02:29→22:06)
[2024-09-04 07:45] LABS: Hematocrit 39.6 % (37.0-47.0); Hemoglobin 13.7 g/dL (12.0-16.0); Mean Corp Hgb Conc. 34.6 g/dL (33.0-37.0); Mean Corpuscular Hgb 33.3 pg (27.0-31.0); Mean Corpuscular Volume 96.1 fL (81.0-99.0); Mean Platelet Volume 11.4 fL (7.4-10.4); Platelet Count 174 10^3/uL (130-400); Red Blood Cell Count 4.12 10^6/uL (4.20-5.40)
[2024-09-04 07:58] LABS: Blood Urea Nitrogen 5 mg/dl (7-17); Calcium 9.2 mg/dl (8.4-10.2); Carbon Dioxide 27 mmol/L (22-30); Chloride 101 mmol/L (98-107); Estimated Creatinine Clearance 76 ml/min; Glucose 100 mg/dl (70-99); Potassium 3.7 mmol/L (3.5-5.1); Sodium 139 mmol/L (135-145); eGFR > 60.00
[2024-09-04] MEDS: PULMICORT 0.5 MG INH ×2 (08:26→20:15)
[2024-09-04 08:27] LABS: Glucose - Point of Care 91 mg/dl (70-99)
[2024-09-04] MEDS: PROTONIX IV 40 MG IV (08:56)
[2024-09-04] MEDS: DEPACON 53.75 MG IV (08:57)
[2024-09-04] MEDS: NSS (PRESERVATIVE FREE) 10 ML IV (08:57)
[2024-09-04] MEDS: DESENEX/MITRAZOL/ZEASORB 1 APPLIC TOPICAL ×2 (09:07→22:07)
[2024-09-04 09:20] LABS: White Blood Cell Count 6.1 10^3/uL (4.8-10.8)
[2024-09-04 09:21] LABS: Absolute Neutrophils -Man Diff 2.5 10^3/uL (1.4-6.5); Band Neutrophils 2 % (0-3); Eosinophils 2 % (0-6); Lymphocytes 33 % (20-51); Metamyelocytes 2 % (-); Monocytes 14 % (2-9); Myelocytes 7 % (-); Segmented Neutrophils 40 % (42-75)
[2024-09-04 09:22] LABS: Total Cells Counted 100
[2024-09-04 09:47] LABS: Normal RBC Morphology Yes; Platelets Checked Yes
[2024-09-04 12:21] LABS: Glucose - Point of Care 111 mg/dl (70-99)
--- NOTE | 2024-09-04 14:16 | W.PN.HOSP.TC ---
Today's Communication/Plan
-
encourage oral intake
continue abx
possible d/c in 24-48hrs
Assessment / Plan
Assessment / Plan
1. Sepsis due to aspiration pneumonia:
maintain on IV Zosyn
Speech initially recommended n.p.o. although cleared and on dysphagia diet
At risk of recurrent events from aspiration
Blood cultures no growth
Recently hospitalized for UTI
PT evaluation
2. NSVT:
Continue cardiac monitoring
Replete K
Mag above 2
3. Hypokalemia
Replete and trend
4. Acute hypoxic respiratory failure due to pneumonia:
Initially on nonrebreather mask but now on supplemental oxygen
Titrate oxygen
Flu and COVID-19 negative
Strep and Legionella negative
5. 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
Continue monitor mental status and behavior
6. Chronic diastolic CHF:
Continue oral furosemide 40 mg p.o. daily
7. Paroxysmal atrial fibrillation:
Continue diltiazem 180 mg p.o. daily
Continue apixaban 5 mg p.o. twice a day
8. Seizure disorder:
Continue Depakote 375 mg p.o. daily and 750 mg p.o. in the evening--> switched to IV for now.
9. Hyperlipidemia:
Continue statin
DVT prophylaxis: Eliquis
CODE STATUS: DNR
Anticipated Discharge: Within 24 hours
Subjective/Interval History
-
Date of Service: September 04, 2024
Patient awake and communicative
Decreased appetite
Afebrile overnight
not on oxygen
Objective Data
-
Labs:
Laboratory Results
09/04/24
06:56
WBC 6.1
Hgb 13.7
Hct 39.6
Plt Count 174
Sodium 139
Potassium 3.7
Chloride 101
Carbon Dioxide 27
BUN 5 L
Creatinine 0.6
Glucose 100 H
Calcium 9.2
Vital Signs:
Vital Signs
Temp Pulse Resp BP Pulse Ox
98.4 F 86 15 157/88 97
09/04/24 07:37 09/04/24 08:29 09/04/24 08:29 09/04/24 07:37 09/04/24 09:15
I&O
09/03/24 09/04/24 09/05/24
06:59 06:59 06:59
Intake Total 1360 / 1360 1080 / 1080
Balance 1360 / 1360 1080 / 1080
Review of Systems
-
Unable to obtain full review of systems at this time due to: Dementia
Physical Exam
-
General: Comfortable; Negative Respiratory Distress
HEENT: Negative Oxygen
Respiratory: Clear to Auscultation
GI: Soft, Nontender and Nondistended
Musculoskeletal: No Edema
Neuro: Awake
--- NOTE | 2024-09-04 15:20 | PTCARENOTE ---
1415 Pt had a 10 beat run of V tach. Then returned into A- fib. Dr. Kameron Zamudio made aware. Cont to assess patient status.
[2024-09-04 17:01] LABS: Glucose - Point of Care 93 mg/dl (70-99)
[2024-09-04] MEDS: LOVENOX 40 MG SC (17:17)
[2024-09-04 21:55] LABS: Glucose - Point of Care 96 mg/dl (70-99)
[2024-09-04] MEDS: DEPACON 57.5 MG IV (22:07)
[2024-09-05] MEDS: ZOSYN 50 IV ×3 (02:49→15:33)
[2024-09-05 03:59] VITALS: BP 166/103
[2024-09-05 04:30] VITALS: BP 153/85
[2024-09-05 06:00] VITALS: BMI 25.1
[2024-09-05] MEDS: PULMICORT 0.5 MG INH (08:12)
[2024-09-05 08:29] LABS: Glucose - Point of Care 92 mg/dl (70-99)
[2024-09-05 08:30] VITALS: BP 130/77
[2024-09-05 08:44] LABS: Hemoglobin 13.2 g/dL (12.0-16.0); Mean Corp Hgb Conc. 33.8 g/dL (33.0-37.0); Mean Corpuscular Hgb 32.9 pg (27.0-31.0); Mean Corpuscular Volume 97.3 fL (81.0-99.0); Mean Platelet Volume 11.1 fL (7.4-10.4); Platelet Count 200 10^3/uL (130-400); Red Blood Cell Count 4.01 10^6/uL (4.20-5.40); Red Cell Dist. Width 14.1 % (11.5-14.5)
[2024-09-05 09:14] LABS: Blood Urea Nitrogen 7 mg/dl (7-17); Calcium 9.4 mg/dl (8.4-10.2); Carbon Dioxide 30 mmol/L (22-30); Chloride 101 mmol/L (98-107); Estimated Creatinine Clearance 65 ml/min; Glucose 95 mg/dl (70-99); Potassium 3.5 mmol/L (3.5-5.1); Sodium 141 mmol/L (135-145); eGFR > 60.00
[2024-09-05] MEDS: DESENEX/MITRAZOL/ZEASORB 1 APPLIC TOPICAL (10:11)
[2024-09-05] MEDS: PROTONIX IV 40 MG IV (10:16)
[2024-09-05] MEDS: NSS (PRESERVATIVE FREE) 10 ML IV (10:16)
[2024-09-05] MEDS: DEPACON 53.75 MG IV (10:48)
[2024-09-05 12:08] VITALS: BP 150/87
[2024-09-05 12:56] LABS: Glucose - Point of Care 120 mg/dl (70-99)
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
--- NOTE | 2024-09-05 14:18 | W.DCSUMMARY ---
Discharge Summary
Discharge Data
Date of Admission: 08/28/24
Date of Discharge: 09/05/24
-
Pending Results: No
Hospital Course
Discharging Physician : Dr Shaun Zamudio
Disposition : NH
Primary care physician : Dr Gerber Sawyer
Principal Discharge diagnosis :
Sepsis from presumed aspiration pneumonia
Episode of nonsustained ventricular tachycardia
Hypokalemia
Acute hypoxic respiratory failure
Chronic Discharge diagnosis :
History of traumatic brain injury
History seizures
Congestive congestive heart failure
Paroxysmal atrial fibrillation
Hyperlipemia
Hospital Course :
Patient is a 74-year-old female with admission past medical history was brought into ER after patient was noted to be lethargic/unresponsive at skilled nursing. Patient was noted to be hypoxic on 3 to oxygen through nasal cannula. Chest x-ray in ER
was showing bibasilar opacification with concern of pneumonia. Patient was clinically diagnosed to be septic from pneumonia as well. COVID/flu were checked and was negative. Patient was started on empiric antibiotics and is admitted to hospital
for further evaluation. Over next few days patient mentation improved and patient septic marker improved as well. Patient continues to have on and off somnolence and patient was taken off of Lyrica. Of note patient is on Depakote with history of
TBI/seizure dose of which was maintained as preadmission level. Overall patient have decreased oral intake and this was discussed with patient sister, who is only power of enologist. Sister understands prognosis. Patient was discharged to [place] post
medical stabilization.
Important imaging findings :
None
Procedure findings :
None
Discharge Plan
-
Patient Disposition: [facility]/SNF
Discharge Diagnosis/Procedures: Sepsis due to aspiration pneumonia. Hypokalemia. Acute hypoxic respiratory failure due to pneumonia. History of traumatic brain injury. Chronic diastolic congestive heart failure. History of paroxysmal atrial
fibrillation. History of seizure disorder.
Condition: Fair
Diet: Other diet
Additional Diets: IDDSI 4 - Pureed diet
Activity: As tolerated
Driving Restrictions: No driving
Blood Work: Please PCP to order CBC, BMP within 1 week
Referrals:
Gerber Sawyer MD [Family Provider] - in less than 1 week
Prescriptions:
New
amoxicillin-pot clavulanate 875-125 mg tablet
1 tab PO BID Qty: 6 0RF
Rx Instructions:
Last dose 09/07 Evening
Continued
acetaminophen 325 MG tablet
650 mg PO Q4HPRN PRN (Reason: mild pain/ fever>100.4)
sennosides-docusate sodium 1 TABLET tablet
2 tab PO HS
magnesium hydroxide 30 ML suspension
30 ml PO HSPRN PRN (Reason: if no bm by 2nd day)
bisacodyl [OneLAX Bisacodyl] 10 MG suppository
10 mg IN [id number] PRN (Reason: if mom ineffective)
ipratropium-albuterol 0.5 mg-3 mg(2.5 mg base)/3 mL Solution For Nebulization
3 ml INHALATION R Q4HPRN PRN (Reason: wheezing)
dextromethorphan-guaifenesin [Tussin DM] 10-100 mg/5 mL Syrup
10 ml PO Q4HPRN PRN (Reason: cough)
metformin 500 mg Tablet
500 mg PO QPM
furosemide [Lasix] 40 mg Tablet
40 mg PO DAILY
ketoconazole 2 % Shampoo
1 applic TOPICAL TUFR
atorvastatin [Lipitor] 10 mg Tablet
10 mg PO QPM
diltiazem HCl 180 mg Capsule,Extended Release 24hr
180 mg PO DAILY
pantoprazole [Protonix] 40 mg Tablet,Delayed Release (Dr/Ec)
40 mg PO BID
ferrous sulfate 325 mg (65 mg iron) Tablet
325 mg PO MOWEFR@0800
budesonide 0.5 mg/2 mL Suspension For Nebulization
0.5 mg INHALATION R BID
divalproex [Depakote Sprinkles] 125 mg Capsule, Delayed Rel Sprinkle
750 mg PO HS
divalproex [Depakote Sprinkles] 125 mg Capsule, Delayed Rel Sprinkle
375 mg PO DAILY
pregabalin [Lyrica] 150 mg Capsule
150 mg PO BID
cholecalciferol (vitamin D3) [Vitamin D3] 125 mcg (5,000 unit) Tablet
125 mcg PO DAILY
Eliquis 5 mg Tablet
5 mg PO BID
Discharge Orders:
Discharge Patient (As Directed); Ordered 09/05/24
Ordered By: Shaun Zamudio
Discharge Date and Time
Discharge Date/Time: 09/05/24 19:57
Print Language: UKRAINIAN
--- NOTE | 2024-09-05 15:46 | CM ---
Mandeep is being discharge to [facility] today via ambulance at 7:15 this evening. called Mandeep's sister, Addis, to notify her of same; she was appreciative of the call and also advised that she had an update from Dr. Zamudio earlier today which
she appreciated. IMM reviewed via telephone with Addis who was in agreement with discharge. Offered to send IMM via email, however Addis declined.
José Luis at [facility] notified of transport time and will be prepared for pt's return.
REPORT: [phone]
FAX: [phone] [address]
[2024-09-05 16:21] VITALS: BP 166/93
[2024-09-05] MEDS: LOVENOX SC (18:37)
== END 2024-09-05 19:57 | DRG 871 ==
LOC: 4 EAST ACU 14:06
PROVIDERS: Hospitalist; Registered Nurse; ADMITTING PHYSICIAN Hospitalist; ATTENDING PHYSICIAN Hospitalist; EMERGENCY PHYSICIAN Emergency Medicine; FAMILY PHYSICIAN Internal Medicine Geriatric Medicine
DX: A41.9 Sepsis, unspecified organism (principal); J18.9 Pneumonia, unspecified organism; J69.0 Pneumonitis due to inhalation of food and vomit; J96.01 Acute respiratory failure with hypoxia; I50.32 Chronic diastolic (congestive) heart failure; F02.83 Dementia in other diseases classified elsewhere, unspecified severity, with mood disturbance; I47.20 Ventricular tachycardia, unspecified; E87.6 Hypokalemia; Z87.820 Personal history of traumatic brain injury; G40.909 Epilepsy, unspecified, not intractable, without status epilepticus; I48.0 Paroxysmal atrial fibrillation; E78.00 Pure hypercholesterolemia, unspecified; Z79.84 Long term (current) use of oral hypoglycemic drugs; E11.9 Type 2 diabetes mellitus without complications; Z79.01 Long term (current) use of anticoagulants; Z85.820 Personal history of malignant melanoma of skin; E03.9 Hypothyroidism, unspecified; I11.0 Hypertensive heart disease with heart failure; K21.9 Gastro-esophageal reflux disease without esophagitis; M48.00 Spinal stenosis, site unspecified; M79.7 Fibromyalgia; I35.1 Nonrheumatic aortic (valve) insufficiency; D50.9 Iron deficiency anemia, unspecified; Z86.0100 Personal history of colon polyps, unspecified; G20.A1 Parkinson's disease without dyskinesia, without mention of fluctuations; F32.A Depression, unspecified; G83.9 Paralytic syndrome, unspecified; H50.9 Unspecified strabismus; G89.29 Other chronic pain; Z99.3 Dependence on wheelchair; Z66 Do not resuscitate; Z11.52 Encounter for screening for COVID-19
CPT/HCPCS: 71045; 80048; 80053; 81003; 81015; 82962; 83036; 83605; 83735; 84484; 85025; 85027; 87040; 87070; 87449; 87502; 87811; 87899; 92526; 92610; 93005; 94640; 96365; 99285

== ENCOUNTER → 2024-09-13 10:19 | Outpatient (REF) | payer OTHER, MEDICARE, SELFPAY ==
[2024-09-13 12:10] LABS: Hematocrit 39.8 % (37.0-47.0); Hemoglobin 12.8 g/dL (12.0-16.0); Mean Corp Hgb Conc. 32.2 g/dL (33.0-37.0); Mean Corpuscular Hgb 33.2 pg (27.0-31.0); Mean Corpuscular Volume 103.1 fL (81.0-99.0); Mean Platelet Volume 11.4 fL (7.4-10.4); Platelet Count 140 10^3/uL (130-400); Red Blood Cell Count 3.86 10^6/uL (4.20-5.40); Red Cell Dist. Width 14.7 % (11.5-14.5); White Blood Cell Count 8.2 10^3/uL (4.8-10.8)
[2024-09-13 13:22] LABS: Blood Urea Nitrogen 19 mg/dl (7-17); Calcium 9.2 mg/dl (8.4-10.2); Carbon Dioxide 40 mmol/L (22-30); Chloride 96 mmol/L (98-107); Glucose 94 mg/dl (70-99); Potassium 3.7 mmol/L (3.5-5.1); Sodium 143 mmol/L (135-145); eGFR > 60.00
== END ==
LOC: OLABN 10:19
PROVIDERS: ATTENDING PHYSICIAN Internal Medicine Geriatric Medicine
DX: I50.30 Unspecified diastolic (congestive) heart failure (principal); I10 Essential (primary) hypertension
CPT/HCPCS: 36415; 80048; 85027

== ENCOUNTER → 2024-10-06 11:56 | Outpatient (REF) | payer MEDICARE, OTHER, SELFPAY ==
[2024-10-06 13:09] LABS: Hematocrit 44.5 % (37.0-47.0); Hemoglobin 14.5 g/dL (12.0-16.0); Mean Corp Hgb Conc. 32.6 g/dL (33.0-37.0); Mean Corpuscular Volume 101.1 fL (81.0-99.0); Mean Platelet Volume 10.8 fL (7.4-10.4); Platelet Count 203 10^3/uL (130-400); Red Cell Dist. Width 14.7 % (11.5-14.5); White Blood Cell Count 6.1 10^3/uL (4.8-10.8)
[2024-10-06 14:03] LABS: ALT (SGPT) 53 U/L (0-35); AST (SGOT) 54 U/L (14-36); Albumin 3.6 g/dl (3.5-5.0); Alkaline Phosphatase 53 U/L (38-126); Blood Urea Nitrogen 19 mg/dl (7-17); Calcium 9.2 mg/dl (8.4-10.2); Carbon Dioxide 38 mmol/L (22-30); Chloride 95 mmol/L (98-107); Glucose 95 mg/dl (70-99); HDL Cholesterol 26 mg/dl; Iron 139 ug/dl (37-170); LDL Cholesterol, Calculated 128 mg/dl; Potassium 4.7 mmol/L (3.5-5.1); Sodium 135 mmol/L (135-145); Total Bilirubin 0.5 mg/dl (0.2-1.3); Total Cholesterol 225 mg/dl (50-199); Total Protein 6.5 g/dl (6.3-8.2); Triglyceride 358 mg/dl (10-149); Very Low Density Lipoprotein 71 mg/dl (0-30); eGFR > 60.00
[2024-10-06 14:20] LABS: Free T4 0.89 ng/dl (0.78-2.19); Vitamin D, 25-OH*** 33.6 ng/mL (30-80)
[2024-10-06 14:23] LABS: Glycohemoglobin (HgbA1c) 5.7 % (4.0-5.6)
[2024-10-06 15:29] LABS: Depakane 85.6 ug/ml (50.0-120.0)
== END ==
LOC: OLABN 11:56
PROVIDERS: ATTENDING PHYSICIAN Internal Medicine Geriatric Medicine
DX: E78.5 Hyperlipidemia, unspecified (principal); R11.10 Vomiting, unspecified; I48.91 Unspecified atrial fibrillation; R73.03 Prediabetes; E03.9 Hypothyroidism, unspecified; E55.9 Vitamin D deficiency, unspecified
CPT/HCPCS: 36415; 80053; 80061; 80164; 82306; 83036; 83540; 84439; 84443; 85027